=== PATIENT | female | born 1955 | race American Indian/Alaskan Native ===

== ENCOUNTER 2019-08-09 01:43 | Observation (INO) | payer OTHER ==
[2019-08-09] MEDS ORDERED: NA CHLORIDE 0.9% 1,000 ML ONE (02:04)
[2019-08-09] MEDS ORDERED: PANTOPRAZOLE 40 MG INJ ONE (02:04)
[2019-08-09] MEDS ORDERED: HYDROMORPHONE HCL 1 MG/ML INJ ONE ×2 (02:22→02:58)
[2019-08-09] MEDS ORDERED: ONDANSETRON 4 MG/2 ML VIAL ONE ×3 (02:22→08:38)
[2019-08-09 02:31] LABS: Absolute Lymphocytes (CBC) 1.3 K/uL (0.7-4.9); Basophils % 0.4 % (0-1.3); Hematocrit 37.8 % (36.0-45.0); Lymphocytes % 7.8 % (15.3-44.8); MPV 8.6 fL (7.6-11.3); RBC Red Blood Cell Count 4.19 M/uL (3.86-4.86)
[2019-08-09 02:33] LABS: Protime INR 0.95
[2019-08-09 02:49] LABS: ALT/SGPT 20 U/L (12-78); AST/SGOT 17 U/L (15-37); Albumin 3.7 g/dL (3.4-5.0); Alkaline Phosphatase 86 U/L (45-117); BUN Blood Urea Nitrogen 24 mg/dL (7-18); Bicarbonate 22 mmol/L (21-32); Bilirubin Direct < 0.1 mg/dL (0-0.2); Bilirubin Total 0.3 mg/dL (0.2-1.0); Glucose Level 144 mg/dL (74-106); Lipase 80 U/L (73-393); Magnesium 1.8 mg/dL (1.8-2.4); NT PRO-BNP 325 pg/mL (<125); Potassium 3.3 mmol/L (3.5-5.1); Sodium Level 138 mmol/L (136-145); Troponin (Emerg Dept Use Only) < 0.02 ng/mL (0.0-0.045)
[2019-08-09 03:24] LABS: Blood Morphology Comment NOT SEEN (NOT SEEN); Platelet Estimate ADEQ; Urine White Blood Cell Casts OK
[2019-08-09] MEDS ORDERED: NS KCL 20MEQ 1,000 ML IV ONE (03:45)
--- NOTE | 2019-08-09 04:57 | EDPHYS ---
Physician Documentation [facility] Name: Neelima Roth Age: 64 yrs Sex: Female : 1955 Arrival Date: 08/09/2019 Time: 01:45 Bed 6 Private MD: ANA MARIA Physician Severo Pepper HPI: 08/09 01:59 This 64 yrs old Female presents to ER via EMS with complaints of abdominal pain, frederick nausea a. 01:59 This 64 yrs old Female presents to ER via EMS with complaints of abdominal pain. frederick 01:59 The patient presents with abdominal pain in the upper abdomen, in the lower abdomen, frederick abdominal distention in the upper abdomen, in the lower abdomen. Onset: The symptoms/episode began/occurred 2 day(s) ago. The patient presents to the emergency department with nausea, diarrhea, abdominal pain, of the right upper quadrant, left upper quadrant, right lower quadrant and left lower quadrant, described as burning, constant. Onset: The symptoms/episode began/occurred just prior to arrival. Possible causes: unknown. The symptoms are aggravated by nothing. The symptoms are alleviated by nothing. Associated signs and symptoms: The patient has no apparent associated signs or symptoms. Associated signs and symptoms: none. Historical: - Allergies: 02:04 Codeine; fc - Home Meds: 02:04 hydrochlorothiazide 12.5 mg Oral cap 1 cap once daily [Active]; losartan 100 mg oral fc tab 1 tab once daily [Active]; levothyroxine 25 mcg tab 1 tab once daily [Active]; bupropion HCl 300 mg Oral Tb24 1 tab once daily [Active]; quetiapine 25 mg oral tab 1 tab 2 times per day [Active]; metoprolol tartrate 50 mg Oral tab 1 tab once daily [Active]; duloxetine 60 mg oral cpDR 1 cap once daily [Active]; - PMHx: 02:04 PTSD; Depression; Anxiety; Hypertension; Hypothyroidism; Chronic pain; Pneumothorax; fc Leg surg; - PSHx: 02:04 Rods in back; ; pneumothorax; fc - Immunization history:: Last tetanus immunization: up to date Pneumococcal vaccine is up to date, Flu vaccine is up to date. - Social history:: Smoking status: Patient/guardian denies using tobacco, Patient/guardian denies using alcohol, street drugs. - Ebola Screening: : Patient negative for fever greater than or equal to 101.5 degrees Fahrenheit, and additional compatible Ebola Virus Disease symptoms Patient denies exposure to infectious person Patient denies travel to an Ebola-affected area in the 21 days before illness onset. - Family history:: not pertinent. ROS: 01:59 Constitutional: Negative for fever, chills, and weight loss, Eyes: Negative for injury, frederick pain, redness, and discharge, ENT: Negative for injury, pain, and discharge, Neck: Negative for injury, pain, and swelling, Cardiovascular: Negative for chest pain, palpitations, and edema, Respiratory: Negative for shortness of breath, cough, wheezing, and pleuritic chest pain, Back: Negative for injury and pain, : Negative for injury, bleeding, discharge, and swelling, MS/Extremity: Negative for injury and deformity, Skin: Negative for injury, rash, and discoloration, Neuro: Negative for headache, weakness, numbness, tingling, and seizure, Psych: Negative for depression, anxiety, suicide ideation, homicidal ideation, and hallucinations, Allergy/Immunology: Negative for hives, rash, and allergies, Endocrine: Negative for neck swelling, polydipsia, polyuria, polyphagia, and marked weight changes, Hematologic/Lymphatic: Negative for swollen nodes, abnormal bleeding, and unusual bruising. 01:59 Abdomen/GI: Positive for abdominal pain, of the right upper quadrant, left upper quadrant, right lower quadrant and left lower quadrant. Exam: 01:59 Constitutional: This is a well developed, well nourished patient who is awake, alert, frederick and in no acute distress. Head/Face: Normocephalic, atraumatic. Eyes: Pupils equal round and reactive to light, extra-ocular motions intact. Lids and lashes normal. Conjunctiva and sclera are non-icteric and not injected. Cornea within normal limits. Periorbital areas with no swelling, redness, or edema. ENT: Nares patent. No nasal discharge, no septal abnormalities noted. Tympanic membranes are normal and external auditory canals are clear. Oropharynx with no redness, swelling, or masses, exudates, or evidence of obstruction, uvula midline. Mucous membranes moist. Neck: Trachea midline, no thyromegaly or masses palpated, and no cervical lymphadenopathy. Supple, full range of motion without nuchal rigidity, or vertebral point tenderness. No Meningismus. Chest/axilla: Normal chest wall appearance and motion. Nontender with no deformity. No lesions are appreciated. Cardiovascular: Regular rate and rhythm with a normal S1 and S2. No gallops, murmurs, or rubs. Normal PMI, no JVD. No pulse deficits. Respiratory: Lungs have equal breath sounds bilaterally, clear to auscultation and percussion. No rales, rhonchi or wheezes noted. No increased work of breathing, no retractions or nasal flaring. Back: No spinal tenderness. No costovertebral tenderness. Full range of motion. Female : Normal external genitalia. Skin: Warm, dry with normal turgor. Normal color with no rashes, no lesions, and no evidence of cellulitis. MS/ Extremity: Pulses equal, no cyanosis. Neurovascular intact. Full, normal range of motion. Neuro: Awake and alert, GCS 15, oriented to person, place, time, and situation. Cranial nerves II-XII grossly intact. Motor strength 5/5 in all extremities. Sensory grossly intact. Cerebellar exam normal. Normal gait. Psych: Awake, alert, with orientation to person, place and time. Behavior, mood, and affect are within normal limits. 01:59 Abdomen/GI: Inspection: abdomen appears normal, Bowel sounds: normal, Palpation: mild abdominal tenderness, in all quadrants, in the right upper quadrant, left upper quadrant, right lower quadrant and left lower quadrant, Liver: no appreciated palpable abnormalities, Hernia: not appreciated. Vital Signs: 01:35 Pulse 72; Resp 20; Pulse Ox 100% on R/A; Weight 99.79 kg (R); Height 5 ft. 2 in. fc (157.48 cm) (R); Pain 10/10; 02:30 BP 168 / 141; Pulse 79; Resp 18; Pulse Ox 97% on R/A; lp1 02:46 BP 133 / 95; Pulse 68; Resp 18; Pulse Ox 100% on R/A; lp1 03:53 BP 125 / 79; Pulse 79; Resp 14; Temp 99.1(O); Pulse Ox 99% on R/A; lp1 05:00 BP 119 / 76; Pulse 72; Resp 16; Pulse Ox 99% on R/A; lp1 01:35 Body Mass Index 40.24 (99.79 kg, 157.48 cm) fc 02:30 Unable to obtain accurate blood pressure, patient restless, agitated lp1 MDM: 01:49 Patient medically screened. [facility] 02:03 Data reviewed: vital signs, nurses notes, lab test result(s), EKG, radiologic studies, [facility] CT scan, plain films. 08/09 01:59 Order name: Basic Metabolic Panel; Complete Time: 02:56 [facility] 08/09 01:59 Order name: CBC with Diff; Complete Time: 04:54 [facility] 08/09 01:59 Order name: LFT's; Complete Time: 02:56 [facility] 08/09 01:59 Order name: Magnesium; Complete Time: 02:56 [facility] 08/09 01:59 Order name: NT PRO-BNP; Complete Time: 02:56 [facility] 08/09 01:59 Order name: PT-INR; Complete Time: 02:56 [facility] 08/09 01:59 Order name: Troponin (emerg Dept Use Only); Complete Time: 02:56 [facility] 08/09 01:59 Order name: XRAY Chest (1 view) [facility] 08/09 01:59 Order name: Lipase; Complete Time: 02:56 [facility] 08/09 01:59 Order name: Urine Culture [facility] 08/09 01:59 Order name: CT Abd/Pelvis - PO and IV Contrast [facility] 08/09 03:25 Order name: CBC Smear Scan; Complete Time: 04:54 [facility] 08/09 05:23 Order name: Urine Dipstick--Ancillary (enter results) cm6 08/09 05:29 Order name: Urine Dipstick-Ancillary [facility] 08/09 01:59 Order name: EKG; Complete Time: 02:00 [facility] 08/09 01:59 Order name: Cardiac monitoring; Complete Time: 03:02 [facility] 08/09 01:59 Order name: EKG - Nurse/Tech; Complete Time: 03:02 [facility] 08/09 01:59 Order name: IV Saline Lock; Complete Time: 02:41 [facility] 08/09 01:59 Order name: Labs collected and sent; Complete Time: 02:41 [facility] 08/09 01:59 Order name: O2 Per Protocol; Complete Time: 02:41 [facility] 08/09 01:59 Order name: O2 Sat Monitoring; Complete Time: 02:41 [facility] 08/09 01:59 Order name: Urine Dipstick-Ancillary (obtain specimen); Complete Time: 05:40 frederick Administered Medications: 02:22 Drug: Dilaudid 0.5 mg {Note: RASS 0.} Route: IVP; Site: left antecubital; lp1 05:40 Follow up: Response: No adverse reaction lp1 02:22 Drug: Zofran 4 mg Route: IVP; Site: left antecubital; lp1 05:40 Follow up: Response: Nausea is decreased lp1 02:30 Drug: NS 0.9% 500 ml Route: IV; Rate: bolus; Site: left antecubital; lp1 05:15 Follow up: IV Status: Completed infusion; IV Intake: 1000ml ; Patient given 1000ml per lp1 Provider 02:30 Drug: ProTONIX 40 mg Route: IVP; Site: left antecubital; lp1 03:05 Follow up: Response: No adverse reaction lp1 02:30 Drug: Dilaudid 1 mg {Note: RASS 3.} Route: IVP; Site: left antecubital; lp1 03:04 Follow up: Response: No change in condition; Pain is unchanged, physician notified lp1 02:30 Drug: Zofran 4 mg Route: IVP; Site: left antecubital; lp1 03:05 Follow up: Response: No adverse reaction lp1 02:57 Not Given (Duplicate Order): NS 0.9% 1000 ml IV at 125 ml/hr continuous frederick 03:04 Drug: Dilaudid 1 mg {Note: RASS 2.} Route: IVP; Site: left antecubital; lp1 03:30 Follow up: Response: Pain is decreased; RASS: Alert and Calm (0) lp1 03:05 Not Given (No nausea at this time ): Zofran 4 mg IVP once; over 2 minutes lp1 03:52 Drug: NS 0.9% with KCl 20 mEq/L 1000 ml Route: IV; Rate: 125 ml/hr; Site: left lp1 antecubital; 05:15 Follow up: IV Status: Infusion continued upon admission lp1 05:14 Drug: Zosyn 3.375 grams Route: IVPB; Infused Over: 60 mins; Site: left antecubital; lp1 05:40 Follow up: IV Status: Infusion continued upon admission lp1 Disposition: 08/09/19 04:56 Hospitalization ordered by Mikel Maier for Inpatient Admission. Preliminary diagnosis are Abdominal tenderness, Elevated white blood cell count, Acute appendicitis, Other ovarian cysts - 4.6 cm dermoid cyst, Hypokalemia. - Bed requested for Telemetry/MedSurg (observation). - Status is Inpatient Admission. lp1 - Condition is Stable. - Problem is new. - Symptoms have improved. UTI on Admission? No Signatures: Dispatcher [employer] EDMS Melyssa Robert RN RN mw Anderson, Corey, MD MD [facility] Rita Polanco RN RN Myah Alexander RN RN [facility] Corrections: (The following items were deleted from the chart) 05:05 04:56 Hospitalization Ordered by Mikel Maier MD for Inpatient Admission. Preliminary diagnosis is Abdominal tenderness; Elevated white blood cell count; Acute appendicitis; Other ovarian cysts - 4.6 cm dermoid cyst. Bed requested for Telemetry/MedSurg (observation). Status is Inpatient Admission. Condition is Stable. Problem is new. Symptoms have improved. UTI on Admission? No. frederick 05:14 05:05 08/09/2019 04:56 Hospitalization Ordered by Mikel Maier MD for Inpatient [facility] Admission. Preliminary diagnosis is Abdominal tenderness; Elevated white blood cell count; Acute appendicitis; Other ovarian cysts - 4.6 cm dermoid cyst. Bed requested for Telemetry/MedSurg (observation). Status is Inpatient Admission. Condition is Stable. Problem is new. Symptoms have improved. UTI on Admission? No. 06:06 05:14 08/09/2019 04:56 Hospitalization Ordered by Mikel Maier MD for Inpatient [facility] Admission. Preliminary diagnosis is Abdominal tenderness; Elevated white blood cell count; Acute appendicitis; Other ovarian cysts - 4.6 cm dermoid cyst; Hypokalemia. Bed requested for Telemetry/MedSurg (observation). Status is Inpatient Admission. Condition is Stable. Problem is new. Symptoms have improved. UTI on Admission? No. frederick
--- NOTE | 2019-08-09 04:57 | ER ---
Nurse's Notes [facility] Name: Neelima Roth Age: 64 yrs Sex: Female : 1955 Arrival Date: 08/09/2019 Time: 01:45 Bed 6 Private MD: Diagnosis: Abdominal tenderness;Elevated white blood cell count;Acute appendicitis;Other ovarian cysts-4.6 cm dermoid cyst;Hypokalemia Presentation: 08/09 01:35 Presenting complaint: Patient states: that she is having lower back pain that started 2 fc hrs ago with nausea and chills. Denies any vomiting or diarrhea. Also having lower back spasms. Transition of care: patient was not received from another setting of care. Onset of symptoms was August 09, 2019 at 00:00. Risk Assessment: Do you want to hurt yourself or someone else? Patient reports no desire to harm self or others. Initial Sepsis Screen: Does the patient meet any 2 criteria? No. Patient's initial sepsis screen is negative. Does the patient have a suspected source of infection? No. Patient's initial sepsis screen is negative. Care prior to arrival: None. 01:35 Method Of Arrival: EMS: [facility] 01:35 Acuity: MARLENE 3 fc Historical: - Allergies: 02:04 Codeine; fc - Home Meds: 02:04 hydrochlorothiazide 12.5 mg Oral cap 1 cap once daily [Active]; losartan 100 mg oral fc tab 1 tab once daily [Active]; levothyroxine 25 mcg tab 1 tab once daily [Active]; bupropion HCl 300 mg Oral Tb24 1 tab once daily [Active]; quetiapine 25 mg oral tab 1 tab 2 times per day [Active]; metoprolol tartrate 50 mg Oral tab 1 tab once daily [Active]; duloxetine 60 mg oral cpDR 1 cap once daily [Active]; - PMHx: 02:04 PTSD; Depression; Anxiety; Hypertension; Hypothyroidism; Chronic pain; Pneumothorax; fc Leg surg; - PSHx: 02:04 Rods in back; ; pneumothorax; fc - Immunization history:: Last tetanus immunization: up to date Pneumococcal vaccine is up to date, Flu vaccine is up to date. - Social history:: Smoking status: Patient/guardian denies using tobacco, Patient/guardian denies using alcohol, street drugs. - Ebola Screening: : Patient negative for fever greater than or equal to 101.5 degrees Fahrenheit, and additional compatible Ebola Virus Disease symptoms Patient denies exposure to infectious person Patient denies travel to an Ebola-affected area in the 21 days before illness onset. - Family history:: not pertinent. Screenin:52 Abuse screen: Denies threats or abuse. Nutritional screening: No deficits noted. bb Tuberculosis screening: No symptoms or risk factors identified. Fall Risk None identified. Assessment: 01:49 General: Appears uncomfortable, Behavior is uncooperative, pt states "This isn't going bb to do any good" pt refuses to answer questions requesting family at bedside. Family brought from lobby to pt's room. Dr Pepper at bedside for pt evaluation. 02:20 Reassessment: Patient completed oral contrast, quality technician fiberglass at bedside. lp1 02:30 Reassessment: patient rocking self in bed, agitated, states "The pain is making me want lp1 to punch you"; Lights turned out for patient comfort. General: Behavior is agitated, anxious, restless. Pain: Complains of pain in abdomen Pain currently is 10 out of 10 on a pain scale. Neuro: Level of Consciousness is awake, alert, obeys commands. Cardiovascular: Patient's skin is warm and dry. Respiratory: Respiratory effort is even, Respiratory pattern is hyperventilation. GI: Abdomen is round Reports lower abdominal pain, upper abdominal pain, nausea. : No signs and/or symptoms were reported regarding the genitourinary system. EENT: No signs and/or symptoms were reported regarding the EENT system. Derm: Skin is pink, warm \\T\\ dry. Musculoskeletal: No deficits noted. 02:50 Reassessment: Patient states no pain relief; Provider notified. lp1 03:20 Reassessment: Patient is alert, oriented x 3, equal unlabored respirations, skin lp1 warm/dry/pink. Patient states feeling better. Patient states symptoms have improved. Reassessment: Patient laughing with friend at bedside, pleasant. General: Behavior is calm. 05:00 Reassessment: Patient and/or family updated on plan of care and expected duration. Pain lp1 level reassessed. Patient states pain returning to abdomen at this time; Provider notified. Vital Signs: 01:35 Pulse 72; Resp 20; Pulse Ox 100% on R/A; Weight 99.79 kg (R); Height 5 ft. 2 in. fc (157.48 cm) (R); Pain 10/10; 02:30 BP 168 / 141; Pulse 79; Resp 18; Pulse Ox 97% on R/A; lp1 02:46 BP 133 / 95; Pulse 68; Resp 18; Pulse Ox 100% on R/A; lp1 03:53 BP 125 / 79; Pulse 79; Resp 14; Temp 99.1(O); Pulse Ox 99% on R/A; lp1 05:00 BP 119 / 76; Pulse 72; Resp 16; Pulse Ox 99% on R/A; lp1 01:35 Body Mass Index 40.24 (99.79 kg, 157.48 cm) fc 02:30 Unable to obtain accurate blood pressure, patient restless, agitated lp1 ED Course: 01:35 Arm band placed on Patient placed in an exam room, on a stretcher. fc 01:45 Patient arrived in ED. ds1 01:49 Severo Pepper MD is Attending Physician. frederick 01:52 Patient has correct armband on for positive identification. Placed in gown. Bed in low bb position. Call light in reach. Side rails up X2. Pulse ox on. NIBP on. 01:59 Triage completed. fc 02:21 Inserted saline lock: 20 gauge in left antecubital area, using aseptic technique. lp1 02:30 Radiology exam delayed due to lab results not completed at this time. (BUN/Creatinine). kw1 02:39 Myah Alexander, RN is Primary Nurse. lp1 02:58 XRAY Chest (1 view) In Process Unspecified. EDMS 03:58 CT Abd/Pelvis - PO and IV Contrast In Process Unspecified. EDMS 04:54 Mikel Maier MD is Hospitalizing Provider. frederick 05:10 No provider procedures requiring assistance completed. Patient admitted, IV remains in lp1 place. Administered Medications: 02:22 Drug: Dilaudid 0.5 mg {Note: RASS 0.} Route: IVP; Site: left antecubital; lp1 05:40 Follow up: Response: No adverse reaction lp1 02:22 Drug: Zofran 4 mg Route: IVP; Site: left antecubital; lp1 05:40 Follow up: Response: Nausea is decreased lp1 02:30 Drug: NS 0.9% 500 ml Route: IV; Rate: bolus; Site: left antecubital; lp1 05:15 Follow up: IV Status: Completed infusion; IV Intake: 1000ml ; Patient given 1000ml per lp1 Provider 02:30 Drug: ProTONIX 40 mg Route: IVP; Site: left antecubital; lp1 03:05 Follow up: Response: No adverse reaction lp1 02:30 Drug: Dilaudid 1 mg {Note: RASS 3.} Route: IVP; Site: left antecubital; lp1 03:04 Follow up: Response: No change in condition; Pain is unchanged, physician notified lp1 02:30 Drug: Zofran 4 mg Route: IVP; Site: left antecubital; lp1 03:05 Follow up: Response: No adverse reaction lp1 02:57 Not Given (Duplicate Order): NS 0.9% 1000 ml IV at 125 ml/hr continuous frederick 03:04 Drug: Dilaudid 1 mg {Note: RASS 2.} Route: IVP; Site: left antecubital; lp1 03:30 Follow up: Response: Pain is decreased; RASS: Alert and Calm (0) lp1 03:05 Not Given (No nausea at this time ): Zofran 4 mg IVP once; over 2 minutes lp1 03:52 Drug: NS 0.9% with KCl 20 mEq/L 1000 ml Route: IV; Rate: 125 ml/hr; Site: left lp1 antecubital; 05:15 Follow up: IV Status: Infusion continued upon admission lp1 05:14 Drug: Zosyn 3.375 grams Route: IVPB; Infused Over: 60 mins; Site: left antecubital; lp1 05:40 Follow up: IV Status: Infusion continued upon admission lp1 Intake: 05:15 IV: 1000ml; Total: 1000ml. lp1 Outcome: 04:56 Decision to Hospitalize by Provider. frederick 05:12 Condition: stable lp1 05:12 Instructed on the need for admit. 05:13 Admitted to Med/surg via wheelchair, room 205, with chart, Report called to Opal Dumont RN 06:06 Patient left the ED. lp1 Signatures: Dispatcher [employer] Severo Reid MD MD cha Chretien Rita, RN RN fc Keith, Shayna ds1 Jessica Olsen RN RN bb Myah Alexander RN RN lp1 Ivanna Kyle [facility]
[2019-08-09] MEDS ORDERED: PIPER/TAZO/NS 3.375gm 3.375 GM/100 ML BAG ONE (04:58)
[2019-08-09] MEDS ORDERED: HYDROMORPHONE HCL 0.5 MG/0.5 ML INJ ONE (05:20)
[2019-08-09 05:29] LABS: Urine Blood NEGATIVE (NEG); Urine Glucose NEGATIVE (NEG); Urine Protein NEGATIVE (NEG); Urine pH 6.5 (5.0-7.0)
[2019-08-09] MEDS ORDERED: MORPHINE 4 MG/ML SYR IV PRN (06:37)
[2019-08-09 06:42] VITALS: BMI 35.7
[2019-08-09] MEDS ORDERED: ACETAMINOPHEN 325 MG TABLET PO PRN (06:46)
--- NOTE | 2019-08-09 07:42 | EKG ---
Test Date: 2019-08-09 Test Time: 03:07:10 Photogravure Press Operator: SALOMÓN MEASUREMENT RESULTS: Intervals: Rate: 64 VT: 170 QRSD: 82 QT: 454 QTc: 468 [place]: P: 15 VT: 170 QRS: 53 T: 41 INTERPRETIVE STATEMENTS: Normal sinus rhythm Normal ECG No previous ECG available for comparison Electronically Signed On 08-09-19 07:41:53 TRANSACTIONAL ATTORNEY by Kunal Powell
--- NOTE | 2019-08-09 08:24 | RAD REPORT ---
EXAM DESCRIPTION: RAD - Chest Single View - 08/09/2019 2:57 am CLINICAL HISTORY: Cough, abdominal distention COMPARISON: None. TECHNIQUE: AP portable chest image was obtained 0239 hours . FINDINGS: Lung volumes are low. No peripheral mass or consolidation. Heart size and vasculature with in normal limits for body habitus and portable imaging. Trachea is midline. Heart and vasculature are normal. No measurable pleural effusion and no pneumothorax. No acute bony abnormality seen. No acute aortic findings suspected. IMPRESSION: No acute cardiopulmonary process.
[2019-08-09] MEDS ORDERED: Ringers Lactate 1,000 ML IV ONE (08:26)
[2019-08-09] MEDS ORDERED: FENTANYL CITR 100 MCG/2 ML ONE (08:36)
[2019-08-09] MEDS ORDERED: ROCURONIUM 50 MG/5 ML VIAL IV ONE (08:36)
[2019-08-09] MEDS ORDERED: PROPOFOL 200 MG/20 ML VIAL IV ONE ×2 (08:36→09:29)
[2019-08-09] MEDS ORDERED: LIDOCAINE 2% MPF 5 ML VIAL ONE (08:37)
[2019-08-09] MEDS ORDERED: MIDAZOLAM HCL 2 MG/2 ML INJ ONE (08:37)
[2019-08-09] MEDS ORDERED: SCOPOLAMINE HYDROBROMIDE PATCH TD ONE (08:40)
--- NOTE | 2019-08-09 08:47 | P.HP ---
Date of Service: 08/09/19 PC: This 64-year-old female presents emergency room with severe abdominal pain for diagnosis and treatment. HPC: Patient noticed that she was having abdominal discomfort about 48 hr ago. Pain has intensified. Now located in the right lower quadrant. PMH: PTSD, hypertension, hypothyroidism PSHx: Previous back surgery, knee surgery, SOC: Says codeine makes her itchy SYS REVIEW: No cough, wheeze, shortness of breath. No chest pain or palpitations no urinary complaints O/E awake alert vital signs are stable HEENT: Within normal limits Chest: Clear ABD: Tender with guarding in the right lower quadrant LOCO: Intact DATA: CT scan supports clinical diagnosis of acute appendicitis IMPRESSION: Acute abdomen with appendicitis PLAN: I will take her to the operating room for laparoscopic possible open appendectomy. The risks of this procedure have been discussed. The possibility of bleeding, infection, injury to bowel and surrounding structures was explained. The possible need for an open and/or further surgeries and procedures was described. Bleeding and abscess formation were outlined. She understands and wants us proceed.
[2019-08-09] MEDS ORDERED: NS 0.9% VIAL 20 ML ONE (09:08)
[2019-08-09] MEDS ORDERED: GLYCOPYRROLATE 0.2 MG/ML SYR ONE ×2 (09:27→09:39)
[2019-08-09] MEDS ORDERED: NEOSTIGMINE 1 MG/ML -5 ML ONE (09:39)
--- NOTE | 2019-08-09 09:43 | P.OP ---
Preoperative diagnosis: Acute abdomen Postoperative diagnosis: Acute appendicitis Primary procedure: Laparoscopic appendectomy Anesthesia: General Estimated blood loss: Less than 10 cc Specimen: 1 appendix Operative Technique: The patient brought the operating room and placed supine on the table. After the induction of adequate general endotracheal anesthesia, the area of the abdomen was prepped with a DuraPrep solution, and she was draped in usual aseptic manner. A subumbilical incision was made. This brought down through the skin and subcutaneous tissue. The Visiport was now used to enter the peritoneal cavity and created pneumoperitoneum to approximately 12 mm of mercury. The patient was then placed in Trendelenburg. A lower midline 5 mm trocar was placed The table was now rolled to the left. And a right upper quadrant trocar was carefully placed. We could now visualize right lower quadrant. The right colon was noted mildly inflamed. Around the cecum there was more inflammation. The appendix was identified was found to be acutely inflamed with suppurative exudate on its surface. The appendix was adherent to the distal ileum as well as the omentum in that area. These adhesions were gently taken down. The base of his the appendix was identified at its junction with the cecum. A window was made into the mesentery of the appendix. A linear Stapler was now placed across the base of the appendix and fired. A vascular reload was used to take down the mesentery. We also fired another blue cartridge to completely peritoneum. At this point the specimens placed into an Endo-Catch and brought out through the umbilical trocar site. The right lower quadrant was inspected to ensure adequate hemostasis. The area was gently irrigated and the effluent was aspirated from the peritoneal cavity. The anterior abdominal wall was CALVIN blocked with 0.25% Marcaine. The Endo Close was used to approximate the facile defect at the emboli kiss. The pneumoperitoneum was now collapsed, the trocars removed, and the sutures tied. At the end of procedure she was stable when sent to the recovery room. Needle sponge instrument count were correct. No drains were placed. Kaylen were applied to the skin. Complications: None Transferred to: Recovery Room Condition: Good
[2019-08-09] MEDS: HYDROMORPHONE HCL 2 MG/ML inj ONE ×2 (10:03→10:17)
--- NOTE | 2019-08-09 11:13 | RAD REPORT ---
EXAM DESCRIPTION: CT - Abdomen Pelvis W Contrast - 08/09/2019 5:08 am CLINICAL HISTORY: ABD PAIN COMPARISON: None. TECHNIQUE: CT ABDOMEN PELVIS WITH IV CONTRAST on 08/09/2019 1:59 AM MARKETING ADMINISTRATOR This exam was performed according to our departmental dose-optimization program, which includes autom ated exposure control, adjustment of the mA and/or kV according to patient size and/or use of iterati ve reconstruction technique. FINDINGS: Lower lungs are clear. Abdomen: The liver is normal in appearance. There is no biliary dilatation. Gallbladder is normal in appearance. The pancreas and spleen are normal in appearance. The adrenal glands and kidneys are unre markable. Abdominal aorta is normal in course and caliber without aneurysm. There is no free air. There is no r etroperitoneal adenopathy. Pelvis: There is no bowel obstruction. Urinary bladder is unremarkable. There is no free fluid. Uteru s is normal in size. There is mostly fat-containing left adnexal mass measuring 4.6 x 4.6 cm. Appendi x is equivocally thickened measuring up to 9 mm. There is no significant inflammation surrounding it. There is a lipoma in the anterior upper left thigh musculature measuring at least 6.5 cm. Skeleton: There are no acute osseous findings. No suspicious bony lesions. Thoracolumbar fusion was p erformed with evidence of an old compression fracture of L1. IMPRESSION: Equivocal findings of acute appendicitis. 4.6 cm dermoid ovarian cyst. Recommend pelvic MRI w/IV contrast. If not surgically resected, pelvic U S follow-up annually. Reference: J Am Vincent Radiol 2013;[id number] Electronically signed by: Hari Zimmerman MD 08/09/2019 4:06 AM MARKETING ADMINISTRATOR Due to temporary technical issues with the PACS/Fluency reporting system, reports are being signed by the in house radiologist as a courtesy to ensure prompt reporting. The interpreting radiologist is f ully responsible for the content of the report.
[2019-08-09] MEDS: MORPHINE 4 MG/ML SYR IV PRN ×4 (11:16→21:27)
[2019-08-09] MEDS ORDERED: PIPER/TAZO/NS 3.375gm 3.375 GM/100 ML BAG IVPB SCH (12:00)
[2019-08-09] MEDS: NS KCL 20MEQ 20 MEQ/1,000 ML BAG IV SCH ×4 (12:15→22:37)
[2019-08-09] MEDS: PIPER/TAZO/NS 3.375gm 3.375 GM/100 ML BAG IVPB SCH (13:12)
[2019-08-09] MEDS: ONDANSETRON 4 MG/2 ML VIAL IV PRN ×2 (15:08→21:20)
[2019-08-09] MEDS ORDERED: NA CHLORIDE 0.9% 500 ML IV ONE (16:17)
[2019-08-09] MEDS: HYDROCODONE/APAP 7.5/325 MG TAB PO PRN (21:19)
[2019-08-09 22:13] VITALS: O2SAT 97
[2019-08-10] MEDS: PIPER/TAZO/NS 3.375gm 3.375 GM/100 ML BAG IVPB SCH ×2 (00:26→08:23)
[2019-08-10] MEDS: MORPHINE 4 MG/ML SYR IV PRN ×2 (00:27→06:34)
[2019-08-10 06:29] LABS: Potassium 4.5 mmol/L (3.5-5.1)
[2019-08-10] MEDS: NS KCL 20MEQ 20 MEQ/1,000 ML BAG IV SCH ×2 (06:33→10:35)
[2019-08-10] MEDS: HYDROCODONE/APAP 7.5/325 MG TAB PO PRN ×2 (10:34→14:13)
[2019-08-10] MEDS ORDERED: NA CHLORIDE 0.9% 500 ML IV ONE (11:37)
--- NOTE | 2019-08-10 12:56 | RAD REPORT ---
EXAM DESCRIPTION: Dorcas Joe And Ashu (2 Views)08/10/2019 12:44 pm CLINICAL HISTORY: Shortness of breath COMPARISON: August 09, 2019 FINDINGS: A few areas of subsegmental axis are present within the lungs. The heart is borderline enlarged. Pneumoperitoneum is present status post recent abdominal surgery
[2019-08-10 13:17] VITALS: BP 95/62; TEMP 98
--- NOTE | 2019-08-10 14:28 | P.CNS ---
Date of Consult: 08/10/19 Reason for Consult: Chest tightness Requesting Physician: Mikel Maier Chief Complaint: Chest Tightness History of Present Illness: A 64-year-old female with significant past medical history of hypothyroidism, hypertension, depression who presented to the ED complaining of having abdominal pain. Workup in the ED reveals the patient had acute appendicitis. Patient was taken to the OR by general surgery. Was doing well overall post procedures well. General surgeon was following up with patient patient complained of having chest tightness which is why medicine was consulted for further management. Patient stated that she is having chest tightness which is more similar to her anxiety attack that she has had in the past. Patient is currently very anxious regarding discharging home right after the procedure. States that she is anxious as to what needs to be done at home. Patient denies having any chest pain shortness of breath nausea vomiting or any other associated symptoms at this time. Allergies codeine Allergy (Verified 08/09/19 06:36) Itching Home Medications: Bupropion *Xl* [Wellbutrin XL] 300 mg PO DAILY 08/09/19 Duloxetine HCl [Cymbalta] 2 tab PO DAILY 08/09/19 Levothyroxine Sodium 1 tab PO DAILY 08/09/19 Losartan Potassium 1 tab PO DAILY 08/09/19 Metoprolol Succinate [Toprol Xl*] 1 tab PO DAILY 08/09/19 Quetiapine [Seroquel*] 1 tab PO BEDTIME 08/09/19 hydroCHLOROthiazide [Hydrochlorothiazide] 1 tab PO DAILY 08/09/19 Hydrocodone 7.5/APAP 325 [Hayes 7.5/325 mg] 1 tab PO Q6H PRN #20 tab 08/10/19 - Past Medical/Surgical History Diabetic: No Past Medical History: Reviewed- Non-Contributory Past Surgical History: Reviewed- Non-Contributory - Social History Smoking Status: Unknown if ever smoked Counseled patient to stop smoking for: more than 10 minutes Smoking therapy provided: Yes Patient receptive to therapy: Yes Alcohol use: No CD- Drugs: No Caffeine use: No Place of Residence: Home Review of Systems 10-point ROS is otherwise unremarkable Physical Examination Temp Pulse Resp BP Pulse Ox 98 F 89 18 95/62 98 08/10/19 12:00 08/10/19 12:00 08/10/19 14:13 08/10/19 12:00 08/10/19 14:13 General: Alert, In no apparent distress HEENT: Atraumatic, PERRLA, Mucous membr. moist/pink, EOMI, Sclerae nonicteric Neck: Supple, 2+ carotid pulse no bruit, No LAD, Without JVD or thyroid abnormality Respiratory: Clear to auscultation bilaterally, Normal air movement Cardiovascular: Regular rate/rhythm, Normal S1 S2 Gastrointestinal: Normal bowel sounds, No tenderness Musculoskeletal: No tenderness Integumentary: No rashes Neurological: Normal gait, Normal speech, Normal tone, Normal affect Lymphatics: No axilla or inguinal lymphadenopathy - Problems (1) Chest tightness Current Visit: Yes Status: Acute Plan: Chest Tightness most likely related anxiety related to surgery and DC home -Troponin x 2 negative -EKG with Sinus Rhythm -Chest tightness now resolved post pain medication -Will keep on Tele and monitor closely -Okay to DC from Medical standpoint when surgery ready for DC (2) Appendicitis Current Visit: Yes Status: Acute Plan: Appendicitis -S.P Lap appy with gen surgery today -Doing well -Pain mgmt and Ambulate -Encourage PO Qualifiers: Appendicitis type: acute appendicitis Appendicitis gangrene presence: unspecified whether gangrene present Appendicitis perforation presence: unspecified whether perforation present Appendicitis abscess presence: unspecified whether abscess present
--- NOTE | 2019-08-10 14:30 | EKG ---
Test Date: 2019-08-10 Test Time: 12:49:15 Manager Distribution: BENY MEASUREMENT RESULTS: Intervals: Rate: 88 TX: 168 QRSD: 88 QT: 370 QTc: 447 [place]: P: 43 TX: 168 QRS: 56 T: 34 INTERPRETIVE STATEMENTS: Normal sinus rhythm Normal ECG Compared to ECG 08/09/2019 03:07:10 No significant changes Electronically Signed On 08-10-19 14:29:51 DIRECT ENTRY MIDWIFE by Edson Flannery
[2019-08-10] MEDS ORDERED: QUETIAPINE 25 MG TAB PO SCH (21:00)
[2019-08-11] MEDS ORDERED: LEVOTHYROXINE SOD 0.025 MG TAB PO SCH (06:30)
[2019-08-11] MEDS ORDERED: hydroCHLOROthiazide 12.5 MG CAP PO SCH (09:00)
[2019-08-11] MEDS ORDERED: DULOXETINE 30 MG CAP PO SCH (09:00)
[2019-08-11] MEDS ORDERED: LOSARTAN POTASSIUM 50 MG TABLET PO SCH (09:00)
[2019-08-11] MEDS ORDERED: HOME MED 1 EA UNK (Losartan Potassium [Losartan Potassium] 1 TAB) PO SCH (09:00)
[2019-08-11] MEDS ORDERED: HOME MED 1 EA UNK (Hydrochlorothiazide [Hydrochlorothiazide] 1 TAB) PO SCH (09:00)
[2019-08-11] MEDS ORDERED: BUPROPION HCL XL 150 MG TAB PO SCH (09:00)
[2019-08-11] MEDS ORDERED: METOPROLOL XL 50 MG TAB PO SCH (09:00)
== END 2019-08-10 15:22 | disposition home or self-care (01) ==
LOC: ER 01:43 → ERHOLD 05:12 → 2ND 05:14
PROVIDERS: ADMIT Surgery; ATTEND Surgery
PROC: 0DTJ4ZZ Resection of Appendix, Percutaneous Endoscopic Approach (ICD-10-PCS; principal; 2019-08-09 08:00)
DX: K35.80 Unspecified acute appendicitis (principal); I10 Essential (primary) hypertension; E03.9 Hypothyroidism, unspecified; F43.10 Post-traumatic stress disorder, unspecified
CPT/HCPCS: 96365; 96361; 93005 ×2; 87088; 85025; 87086; 80048 ×2; 36415 ×2; 83735; 85610; 80076; 88304; 81003; 84484 ×2; 83690; 83880; 74177; 71045; 71046; 96375; 99285; 44970; Q9967; J2704 ×2; C9113; J2250; J1170 ×4; J3010; J2543 ×2; J2710; G0378 ×4; J7120; J7040; J7030 ×2; J2405 ×5

== ENCOUNTER 2019-08-13 10:50 | Inpatient (IN) | payer OTHER ==
[2019-08-13] MEDS ORDERED: HYDROMORPHONE HCL 1 MG/ML INJ ONE (12:12)
[2019-08-13] MEDS ORDERED: NA CHLORIDE 0.9% 1,000 ML ONE (12:12)
[2019-08-13] MEDS ORDERED: ONDANSETRON 4 MG/2 ML VIAL ONE (12:12)
[2019-08-13 12:27] LABS: Absolute Lymphocytes (CBC) 0.8 K/uL (0.7-4.9); Basophils % 0.3 % (0-1.3); Hematocrit 24.1 % (36.0-45.0); Lymphocytes % 9.7 % (15.3-44.8); MPV 7.8 fL (7.6-11.3); RBC Red Blood Cell Count 2.61 M/uL (3.86-4.86)
[2019-08-13 12:41] LABS: Albumin 3.1 g/dL (3.4-5.0); Bilirubin Direct 0.2 mg/dL (0-0.2); Bilirubin Total 0.7 mg/dL (0.2-1.0); Potassium 3.3 mmol/L (3.5-5.1); Protein, Total 6.4 g/dL (6.4-8.2)
--- NOTE | 2019-08-13 12:55 | RAD REPORT ---
EXAM DESCRIPTION: CT - Abdomen Pelvis W Contrast - 08/13/2019 12:36 pm CLINICAL HISTORY: ABD PAIN, appendectomy several days earlier, back pain, black tarry stools COMPARISON: Pre-surgical CT study August 09 TECHNIQUE: Biphasic, helical CT imaging of the abdomen and pelvis was performed following 100 ml non -ionic IV contrast. No oral contrast given. All CT scans are performed using dose optimization technique as appropriate and may include automated exposure control or mA/KV adjustment according to patient size. FINDINGS: No suspicious findings in the lung bases. The liver, spleen, and pancreas show no suspicious findings. Small enhancing focus in the liver adjac ent the gallbladder fossa is most likely a small hemangioma. This is not regarded as significant. Mil d stranding is seen adjacent to the gallbladder. Gallstones can be occult on CT imaging. No biliary t ree dilatation. Symmetric renal function is seen with no hydronephrosis or suspicious renal mass. No pyelonephritis o r acute parenchymal process. No bladder abnormalities. No adrenal abnormalities. No gastric dilatation or gastric wall thickening. No dilated small bowel loops. No acute colon findin g identifiable. Punctate air densities in the subcutaneous fatty tissues are related to recent laparo scopic surgery. Small amounts of free air and free intraperitoneal fluid in the upper abdomen also wi thin normal limits for the recent surgery. Appendectomy clips are present at the tip of the cecum. Fluid in the pelvis is present relatively hig h in attenuation at 40-45 Hounsfield units. This is likely a mixture of blood and fluid. There is no active extravasation of contrast material. No abscess or drainable fluid collection at this time. The patient's known 4.5 centimeter left adnexal dermoid/ teratoma shows no change in characteristics. No new uterine finding. Right ovary is obscured by the intraperitoneal fluid. No new bone finding. Patient has extensive postsurgical change in the lumbar spine. Large fatty mass is seen in the anterior by a not fully imaged on this study. The imaged portion does not show aggressive characteristics. IMPRESSION: High density fluid in the lower pelvis and cul de sac likely a mixture of blood and post surgical fluid. No abscess or drainable fluid collection at this time. No active extravasation of contrast material identifiable. The suspected blood within the peritoneal fluid may all have occurred at the time of surgery. This could be a source of pain wall but will prob ably resolve with time. Correlation can be made with hematocrit/hemoglobin levels. Stranding along the margin of the gallbladder is probably reactive from the surgical change. Gallblad devi is not dilated. Gallstones can be occult on CT imaging. No biliary tree dilatation. Fatty mass in the upper thigh is not fully imaged. The visualized portion does not show aggressive ch aracteristics.
--- NOTE | 2019-08-13 13:37 | EDPHYS ---
Physician Documentation [facility] Name: Neelima Roth Age: 64 yrs Sex: Female : 1955 Arrival Date: 08/13/2019 Time: 10:51 Bed 16 Private MD: ANA MARIA Physician Severo Pepper HPI: 08/13 11:54 This 64 yrs old Other Female presents to ER via Wheelchair with complaints of Abdominal pm1 pain. 11:54 The patient presents with abdominal pain that is diffuse. Onset: The symptoms/episode pm1 began/occurred after surgery patient reports expect mild pain but the pain became worse today. The symptoms do not radiate. Associated signs and symptoms: Pertinent positives: nausea, Pertinent negatives: chest pain, diarrhea, dysuria, fever, shortness of breath, vomiting, Cough. The symptoms are described as achy, constant. Modifying factors: The symptoms are alleviated by nothing, the symptoms are aggravated by nothing. Severity of pain: in the emergency department the pain has resolved. The patient has been recently been admitted at [facility], was discharged last week, for appendicitis. Patient reports loose stool and diarrhea since surgery. Reports dark diarrhea. Historical: - Allergies: 10:56 Codeine; la1 - Home Meds: 11:15 bupropion HCl 300 mg Oral Tb24 1 tab once daily [Active]; duloxetine 60 mg Oral cpDR 1 rb1 cap once daily [Active]; hydrochlorothiazide 12.5 mg Oral cap 1 cap once daily [Active]; levothyroxine 25 mcg tab 1 tab once daily [Active]; losartan 100 mg Oral tab 1 tab once daily [Active]; metoprolol tartrate 50 mg Oral tab 1 tab once daily [Active]; quetiapine 25 mg Oral tab 1 tab 2 times per day [Active]; - PMHx: 10:56 Anxiety; Chronic pain; Depression; Hypertension; Hypothyroidism; Leg surg; la1 Pneumothorax; PTSD; - PSHx: 11:15 Rods in back; ; pneumothorax; Appendectomy; rb1 - Immunization history:: Adult Immunizations up to date. - Social history:: Smoking status: Patient/guardian denies using tobacco. - Ebola Screening: : No symptoms or risks identified at this time. ROS: 11:54 Constitutional: Negative for fever, chills, and weight loss, Eyes: Negative for injury, pm1 pain, redness, and discharge, ENT: Negative for injury, pain, and discharge, Neck: Negative for injury, pain, and swelling, Cardiovascular: Negative for chest pain, palpitations, and edema, Respiratory: Negative for shortness of breath, cough, wheezing, and pleuritic chest pain. 11:54 Back: Negative for injury and pain, : Negative for injury, bleeding, discharge, and swelling, MS/Extremity: Negative for injury and deformity, Skin: Negative for injury, rash, and discoloration, Neuro: Negative for headache, weakness, numbness, tingling, and seizure. 11:54 Abdomen/GI: Positive for abdominal pain, nausea, Negative for vomiting, diarrhea, constipation. Exam: 11:54 Abdomen/GI: Stool guaiac negative. Collected by RN from bedside commode, stool pm1 brownish-greenish, loose/diarrhea. 11:54 Constitutional: This is a well developed, well nourished patient who is awake, alert, pm1 and in no acute distress. Head/Face: Normocephalic, atraumatic. Eyes: Pupils equal round and reactive to light, extra-ocular motions intact. Lids and lashes normal. Conjunctiva and sclera are non-icteric and not injected. Cornea within normal limits. Periorbital areas with no swelling, redness, or edema. ENT: Nares patent. No nasal discharge, no septal abnormalities noted. Tympanic membranes are normal and external auditory canals are clear. Oropharynx with no redness, swelling, or masses, exudates, or evidence of obstruction, uvula midline. Mucous membranes moist. Neck: Trachea midline, no thyromegaly or masses palpated, and no cervical lymphadenopathy. Supple, full range of motion without nuchal rigidity, or vertebral point tenderness. No Meningismus. Chest/axilla: Normal chest wall appearance and motion. Nontender with no deformity. No lesions are appreciated. Cardiovascular: Regular rate and rhythm with a normal S1 and S2. No gallops, murmurs, or rubs. Normal PMI, no JVD. No pulse deficits. Respiratory: Lungs have equal breath sounds bilaterally, clear to auscultation and percussion. No rales, rhonchi or wheezes noted. No increased work of breathing, no retractions or nasal flaring. Back: No spinal tenderness. No costovertebral tenderness. Full range of motion. Skin: Warm, dry with normal turgor. Normal color with no rashes, no lesions, and no evidence of cellulitis. MS/ Extremity: Pulses equal, no cyanosis. Neurovascular intact. Full, normal range of motion. 11:54 Abdomen/GI: Inspection: obese Bowel sounds: normal, Palpation: soft, mild abdominal tenderness, in the right lower quadrant and left lower quadrant, mass, is not appreciated, rebound tenderness, is not appreciated. 11:54 Neuro: Orientation: is normal, Mentation: is normal, Memory: is normal, Motor: is normal, Sensation: is normal, no obvious gross deficits. Vital Signs: 11:10 BP 157 / 60; Pulse 100; Resp 16; Temp 98.6; Pulse Ox 100% on R/A; Weight 88.45 kg; la1 12:10 BP 152 / 63; Pulse 98; Resp 17; Pulse Ox 100% on R/A; rb1 13:10 BP 150 / 63; Pulse 89; Resp 17; Pulse Ox 100% on R/A; Pain 6/10; rb1 14:10 BP 136 / 69; Pulse 93; Resp 17; Pulse Ox 100% on R/A; Pain 3/10; rb1 15:10 BP 135 / 71; Pulse 91; Resp 18; Pulse Ox 99% on R/A; Pain 3/10; rb1 MDM: 11:17 Patient medically screened. pm1 11:43 Data reviewed: vital signs. Data interpreted: Pulse oximetry: on room air is 100 %. pm1 Interpretation: normal. 13:30 Physician consultation: Mikel Maier MD was called at 13:25, was contacted at 13:25, pm1 regarding patient's condition, and will see patient tomorrow morning. give patient IV fluids, pain medications, repeat labs in the AM. 08/13 11:44 Order name: [place]; Complete Time: 13:47 em1 08/13 11:46 Order name: Basic Metabolic Panel; Complete Time: 13:03 pm1 08/13 11:46 Order name: CBC with Diff; Complete Time: 13:03 pm1 08/13 11:46 Order name: Creatinine for Radiology; Complete Time: 13:03 pm1 08/13 11:46 Order name: Hepatic Function; Complete Time: 13:03 pm1 08/13 11:46 Order name: Lipase; Complete Time: 13:03 pm1 08/13 11:46 Order name: CT Abd/Pelvis - IV Contrast Only; Complete Time: 13:03 pm1 08/13 11:46 Order name: IV Saline Lock; Complete Time: 12:22 pm1 08/13 13:58 Order name: Type And Screen pm1 08/13 15:08 Order name: ABO/RH no charge; Complete Time: 15:32 EDDE 08/13 15:09 Order name: Type and Screen EDDE 08/13 11:46 Order name: Labs collected and sent; Complete Time: 12:22 pm1 Administered Medications: 12:21 Drug: Dilaudid 1 mg Route: IVP; Site: left antecubital; rb1 12:51 Follow up: Response: No adverse reaction; Pain is decreased rb1 12:21 Drug: Zofran 4 mg Route: IVP; Site: left antecubital; rb1 12:52 Follow up: Response: No adverse reaction; Pain is decreased rb1 12:22 Drug: NS 0.9% 1000 ml Route: IV; Rate: 1000 ml; Site: left antecubital; rb1 Disposition: 08/13/19 13:36 Hospitalization ordered by Mikel Maier for Observation. Preliminary diagnosis are Anemia, unspecified, Unspecified abdominal pain. - Bed requested for Telemetry/MedSurg (observation). - Status is Observation. rb1 - Condition is Stable. - Problem is new. - Symptoms have improved. UTI on Admission? No Addendum: 08/15/2019 07:00 Co-signature as Attending Physician, Severo Pepper MD I agree with the assessment and c moser plan of care. Signatures: Dispatcher [employer] [facility] Severo Pepper MD MD cha Martinez, Eric em1 Johnnie Leos, RN RN la1 Chloe Ramos, RN RN rb1 Bal Mayen, COUNTER STACKER COUNTER STACKER pm1 Corrections: (The following items were deleted from the chart) 08/13 14:15 11:54 Abdomen/GI: Stool guaiac negative. Collected by RN from bedside commode, pm1 pm1 14:15 13:36 Hospitalization Ordered by Mikel Maier MD for Observation. Preliminary em1 diagnosis is Anemia, unspecifiedUnspecified abdominal pain. Bed requested for Telemetry/MedSurg (observation). Status is Observation. Condition is Stable. Problem is new. Symptoms have improved. UTI on Admission? No. pm1 14:16 11:54 Abdomen/GI: Stool guaiac negative. Collected by RN from bedside commode, pm1 pm1 14:17 11:54 Abdomen/GI: Stool guaiac negative. Collected by RN from bedside commode, stool pm1 brownish-greenish, loose. Not diarrhea, pm1 15:18 14:15 08/13/2019 13:36 Hospitalization Ordered by Mikel Maier MD for Observation. rb1 Preliminary diagnosis is Anemia, unspecifiedUnspecified abdominal pain. Bed requested for Telemetry/MedSurg (observation). Status is Observation. Condition is Stable. Problem is new. Symptoms have improved. UTI on Admission? No. em1
--- NOTE | 2019-08-13 13:37 | ER ---
Nurse's Notes [facility] Name: Neelima Roth Age: 64 yrs Sex: Female : 1955 Arrival Date: 08/13/2019 Time: 10:51 Bed 16 Private MD: Diagnosis: Unspecified abdominal pain;Anemia, unspecified Presentation: 08/13 10:56 Presenting complaint: Patient states: I had have black diarrhea since and I la1 had an appendectomy on Wednesday with Dr. Maier here. I also have really bad back pain and it has been hurting for the last 5 days. The pain medicine they sent me home with isnt helping and they told me it was they only thing they would send me home with even though I told them the only thing that works and doesn't upset my stomach is 10mg oxycodone. Transition of care: patient was not received from another setting of care. Onset of symptoms was August 13, 2019. Risk Assessment: Do you want to hurt yourself or someone else? Patient reports no desire to harm self or others. Initial Sepsis Screen: Does the patient meet any 2 criteria? No. Patient's initial sepsis screen is negative. Does the patient have a suspected source of infection? No. Patient's initial sepsis screen is negative. Care prior to arrival: None. 10:56 Method Of Arrival: Wheelchair la1 10:56 Acuity: MARLENE 2 la1 Historical: - Allergies: 10:56 Codeine; la1 - Home Meds: 11:15 bupropion HCl 300 mg Oral Tb24 1 tab once daily [Active]; duloxetine 60 mg Oral cpDR 1 rb1 cap once daily [Active]; hydrochlorothiazide 12.5 mg Oral cap 1 cap once daily [Active]; levothyroxine 25 mcg tab 1 tab once daily [Active]; losartan 100 mg Oral tab 1 tab once daily [Active]; metoprolol tartrate 50 mg Oral tab 1 tab once daily [Active]; quetiapine 25 mg Oral tab 1 tab 2 times per day [Active]; - PMHx: 10:56 Anxiety; Chronic pain; Depression; Hypertension; Hypothyroidism; Leg surg; la1 Pneumothorax; PTSD; - PSHx: 11:15 Rods in back; ; pneumothorax; Appendectomy; rb1 - Immunization history:: Adult Immunizations up to date. - Social history:: Smoking status: Patient/guardian denies using tobacco. - Ebola Screening: : No symptoms or risks identified at this time. Screenin:15 Abuse screen: Denies threats or abuse. Nutritional screening: No deficits noted. rb1 Tuberculosis screening: No symptoms or risk factors identified. Fall Risk None identified. Assessment: 11:15 General: Appears uncomfortable, Behavior is agitated, anxious, Denies fever, Reports rb1 having a appendectomy on Wednesday by Dr. Maier and having black diarrhea on .. Pain: Complains of pain in back Pain currently is 10 out of 10 on a pain scale. Neuro: Level of Consciousness is awake, alert, obeys commands, Oriented to person, place, time, situation. Cardiovascular: Capillary refill < 3 seconds is brisk in bilateral fingers. Respiratory: Airway is patent Respiratory effort is even, unlabored, Respiratory pattern is regular, symmetrical. GI: Reports diarrhea, black stool. : No signs and/or symptoms were reported regarding the genitourinary system. Derm: Skin is pink, warm \T\ dry. 12:15 Reassessment: Patient appears in no apparent distress at this time. No changes from rb1 previously documented assessment. 12:51 Reassessment: Patient appears in no apparent distress at this time. Patient and/or rb1 family updated on plan of care and expected duration. Pain level reassessed. Patient is alert, oriented x 3, equal unlabored respirations, skin warm/dry/pink. 13:50 Reassessment: Patient appears in no apparent distress at this time. Patient and/or rb1 family updated on plan of care and expected duration. Pain level reassessed. Patient is alert, oriented x 3, equal unlabored respirations, skin warm/dry/pink. 14:32 Reassessment: Patient appears in no apparent distress at this time. No changes from rb1 previously documented assessment. 14:46 Reassessment: Called report to JOSIAH Mccann. Information from the [facility] was given. All rb1 questions asked and answered. 15:15 Reassessment: Patient appears in no apparent distress at this time. Patient and/or rb1 family updated on plan of care and expected duration. Pain level reassessed. Patient is alert, oriented x 3, equal unlabored respirations, skin warm/dry/pink. Vital Signs: 11:10 BP 157 / 60; Pulse 100; Resp 16; Temp 98.6; Pulse Ox 100% on R/A; Weight 88.45 kg; la1 12:10 BP 152 / 63; Pulse 98; Resp 17; Pulse Ox 100% on R/A; rb1 13:10 BP 150 / 63; Pulse 89; Resp 17; Pulse Ox 100% on R/A; Pain 6/10; rb1 14:10 BP 136 / 69; Pulse 93; Resp 17; Pulse Ox 100% on R/A; Pain 3/10; rb1 15:10 BP 135 / 71; Pulse 91; Resp 18; Pulse Ox 99% on R/A; Pain 3/10; rb1 ED Course: 10:51 Patient arrived in ED. as 10:55 Arm band placed on left wrist. la1 10:58 Triage completed. la1 11:11 Bal Mayen NP is PHCP. pm1 11:12 Chloe Ramos, RN is Primary Nurse. rb1 11:12 Severo Pepper MD is Attending Physician. pm1 11:15 Patient has correct armband on for positive identification. Bed in low position. Call rb1 light in reach. Side rails up X 1. Pulse ox on. NIBP on. Warm blanket given. 11:49 Radiology exam delayed due to lab results not completed at this time. (BUN/Creatinine). kw1 12:32 CT completed. Patient tolerated procedure well. Patient moved back from CT. bq 12:36 CT Abd/Pelvis - IV Contrast Only In Process Unspecified. EDMS 13:35 Mikel Maier MD is Hospitalizing Provider. pm1 15:18 No provider procedures requiring assistance completed. Patient admitted, IV remains in rb1 place. Administered Medications: 12:21 Drug: Dilaudid 1 mg Route: IVP; Site: left antecubital; rb1 12:51 Follow up: Response: No adverse reaction; Pain is decreased rb1 12:21 Drug: Zofran 4 mg Route: IVP; Site: left antecubital; rb1 12:52 Follow up: Response: No adverse reaction; Pain is decreased rb1 12:22 Drug: NS 0.9% 1000 ml Route: IV; Rate: 1000 ml; Site: left antecubital; rb1 Output: 11:44 Stool: 1 (Loose Stool) ; Total: 0ml. rb1 Outcome: 13:36 Decision to Hospitalize by Provider. pm1 15:18 Patient left the ED. rb1 15:18 Admitted to Tele accompanied by tech, via wheelchair, room 405, with chart, Report rb1 called to JOSIAH Mccann 15:18 Condition: stable 15:18 Instructed on the need for admit. Signatures: Dispatcher [employer] EDMS Fanta Garner Amelia as Attema, Lee, RN RN la1 Chloe Ramos RN RN rb1 Bal Mayen NP DIRECTOR OF MOBILE MARKETING pm1 Ivanna Kyle kw1 Corrections: (The following items were deleted from the chart) 11:00 10:56 Presenting complaint: Patient states: I had have black diarrhea since la1 and I had an appendectomy, I also have really bad back pain and it has been hurting for the last 5 days la1
[2019-08-13 16:11] VITALS: BMI 35.6
[2019-08-13] MEDS ORDERED: HOME MED 1 EA UNK PO PRN ×2 (16:20→16:21)
[2019-08-13] MEDS: NA CHLORIDE 0.9% 1,000 ML IV SCH (16:38)
[2019-08-13] MEDS: ONDANSETRON 4 MG/2 ML VIAL IV PRN ×2 (16:38→21:42)
[2019-08-13] MEDS: MORPHINE 4 MG/ML SYR IV PRN ×2 (17:56→21:43)
[2019-08-14] MEDS: NA CHLORIDE 0.9% 1,000 ML IV SCH ×3 (00:50→20:29)
[2019-08-14] MEDS: MORPHINE 4 MG/ML SYR IV PRN ×7 (01:57→22:26)
[2019-08-14] MEDS: ONDANSETRON 4 MG/2 ML VIAL IV PRN ×2 (01:58→06:07)
[2019-08-14] MEDS: HOME MED 1 EA UNK PO SCH ×6 (06:00→09:00)
[2019-08-14 06:15] LABS: Absolute Lymphocytes (CBC) 0.6 K/uL (0.7-4.9); Basophils % 0.1 % (0-1.3); Hematocrit 22.1 % (36.0-45.0); Lymphocytes % 5.5 % (15.3-44.8); MPV 7.8 fL (7.6-11.3); RBC Red Blood Cell Count 2.41 M/uL (3.86-4.86)
[2019-08-14 06:40] LABS: Albumin 2.6 g/dL (3.4-5.0); Bilirubin Direct 0.2 mg/dL (0-0.2); Bilirubin Total 0.8 mg/dL (0.2-1.0); Protein, Total 5.9 g/dL (6.4-8.2)
[2019-08-14 08:07] LABS: Blood Morphology Comment NOT SEEN (NOT SEEN); Platelet Estimate ADEQ
[2019-08-14] MEDS: PROMETHAZINE 25 MG/ML VIAL IV PRN ×2 (08:23→20:19)
[2019-08-14] MEDS ORDERED: NA CHLORIDE 0.9% 250 ML ONE ×2 (09:46→15:57)
[2019-08-14 22:17] LABS: Hematocrit 28.2 % (36.0-45.0)
[2019-08-15] MEDS: PROMETHAZINE 25 MG/ML VIAL IV PRN ×4 (02:51→21:56)
[2019-08-15] MEDS: MORPHINE 4 MG/ML SYR IV PRN ×7 (02:51→21:55)
[2019-08-15] MEDS: HOME MED 1 EA UNK PO SCH ×6 (05:38→09:00)
[2019-08-15] MEDS: NA CHLORIDE 0.9% 1,000 ML IV SCH ×3 (05:38→17:57)
[2019-08-15 05:54] LABS: Urine Appearance CLEAR; Urine Blood 2+ (NEG); Urine Color AMBER; Urine Glucose NEGATIVE (NEG); Urine Microscopic Reflex ORDER UMIC; Urine Protein 2+ (NEG); Urine Specific Gravity >=1.030 (1.005-1.030); Urine Urobilinogen 0.2 mg/dL (0.2-1.0)
[2019-08-15 06:05] LABS: Urine Bilirubin 1+ (NEG)
[2019-08-15 06:11] LABS: Urine Bacteria <20 /HPF (<20); Urine RBC <5 /HPF (NONE SEEN)
[2019-08-15 06:12] LABS: Urine Culture Reflex Order REFLEXED
--- NOTE | 2019-08-15 09:33 | P.HP ---
Date of Service: 08/14/19 This is a post dated note. PC: This patient presented to the emergency room with abdominal pain and complaint of black tarry stools. HPC: Patient recently undergone appendectomy. She did well postoperatively. She was discharged home. Now 5 days later she comes back with complaints of not feeling well and pain in her back. PMH: PTSD PSHx: Previous back surgeries SOC: Allergic to codeine and acetaminophen SYS REVIEW: No cough, wheeze, shortness of breath. No chest pain or palpitations. Denies any urinary complaints at this time. No respiratory distress. O/E awake alert stable HEENT: Not jaundiced Chest: Chest movement equal bilaterally ABD: Soft minimal tenderness LOCO: Intact DATA: Patient's hemoglobin is 7.9, CT scan demonstrates some fluid in the pelvis IMPRESSION: Possible postoperative bleeding and this surgical site PLAN: Patient has been admitted at this time, we will transfuse her 2 units of blood, administer pain medicine, antibiotics, and observe her closely.
--- NOTE | 2019-08-15 10:03 | P.PN ---
Date of Service: 08/15/19 S: Patient feels much better today, bright and interactive. Has mild abdominal pain but much improved. Does not have much of an appetite is still complains of some nausea. O: Abdomen is soft, minimal lower abdominal tenderness. Hemoglobin responded appropriately with the increase to 9.8 A: Patient is surgically stable, no clinical signs of any active bleeding. P: Continue to advance diet, pain medicine as needed, anticipate discharge in a.m..
[2019-08-16] MEDS: MORPHINE 4 MG/ML SYR IV PRN ×6 (00:45→20:47)
[2019-08-16] MEDS: PROMETHAZINE 25 MG/ML VIAL IV PRN ×3 (04:20→20:47)
[2019-08-16] MEDS: NA CHLORIDE 0.9% 1,000 ML IV SCH ×4 (04:49→23:51)
[2019-08-16] MEDS: HOME MED 1 EA UNK PO SCH ×6 (06:00→09:00)
--- NOTE | 2019-08-16 13:55 | P.PN ---
Date of Service: 08/16/19 S: Patient is very upset today. States that she has not think she is being treated adequately. Says she is having pain and it is not being treated appropriately. She cannot be discharged as I will not write a prescription for oxycodone for her. O: Vital signs are stable, clinically looks well. Has been up out of bed according to the nurses. She has been afebrile since admission. She will not allow me to examine her, or does not want to talk to me anymore today as I am aggravating her PTSD. A: Clinically the patient looks well. Obviously is distressed. P: The patient, on inspection, appears to be stable. There is no way that I am able to converse with her at the moment or examine her. Open questions are quickly shut down, and she states that she cannot leave here until the plan for her pain control has been outlined to her. I do not or ever have prescribed oxycodone for any patient in any outpatient setting. She was discharged on hydrocodone as she stated that she has taken it many times in the past, and it has worked for her but she has found other drugs to be more effective so she stated that she was allergic to codeine and Tylenol. I have offered to try and arrange a outpatient visit way with pain management physician. She stated that that was unsatisfactory. She dismissed me and and says that she will take up this conversation perhaps tomorrow. I have ordered some lab work for her in the morning. I have also explained to her that her morphine (4 mg) is available for her every 2 hr. The nurses state that she appears to be quite comfortable. She was dose at 7:00 a.m., and has slept most of the morning until around 12 when she received another dose. I will repeat some labs in the morning.
[2019-08-17] MEDS: MORPHINE 4 MG/ML SYR IV PRN ×8 (00:04→20:20)
[2019-08-17 05:15] LABS: Absolute Lymphocytes (CBC) 0.6 K/uL (0.7-4.9); Basophils % 0.2 % (0-1.3); Hematocrit 27.4 % (36.0-45.0); Lymphocytes % 4.9 % (15.3-44.8); MPV 7.6 fL (7.6-11.3); RBC Red Blood Cell Count 3.02 M/uL (3.86-4.86)
[2019-08-17 05:35] LABS: Potassium 2.8 mmol/L (3.5-5.1)
[2019-08-17] MEDS: HOME MED 1 EA UNK PO SCH ×6 (06:00→08:46)
[2019-08-17] MEDS: KCL 20 MEQ/100 mL IVPB 20 MEQ/100 ML BAG IV SCH ×3 (06:08→10:00)
[2019-08-17] MEDS: NA CHLORIDE 0.9% 1,000 ML IV SCH ×2 (08:44→16:34)
[2019-08-17] MEDS: PROMETHAZINE 25 MG/ML VIAL IV PRN (10:16)
--- NOTE | 2019-08-17 10:57 | P.CNS ---
Date of Consult: 08/17/19 64 yo female with a past medical history of Anxiety, Chronic pain; Depression; Hypertension; Hypothyroidism; PTSD for underwent a laparoscopic appendectomy admitted with Abdominal pain and anemia. Patient was found to have ESBL in urine culture and hospitalist was consulted by Surgery. I went into her room and introduced myself, told her that I have been consulted for the UTI with ESBL. She refused to be seen. She refused to provide any history. She refused being examined. Recommended meropenem IV for the ESBLwith UTI Discussed with the charge nurse as well. Please let us know if the patient is willing to be seen
--- NOTE | 2019-08-17 14:18 | P.PN ---
Date of Service: 08/17/19 S: Patient appears to be somewhat more receptive today. No specific complaints. O: Dean in the abdomen. Wound Healing. Uli hematoma over the lower abdomen. Has ESBL on culture. Console was sought with the hospitalist. A: Surgically, abdomen is soft, dean removed for her incisions. Hospital says discussed antibiotics and PICC line with the patient. I was able to review with a painting trades worker a post hospital pain regime. It does include OxyContin for a limited time. This was explained to the patient. P: Patient had PICC line placed. Continue current therapy..
[2019-08-17] MEDS ORDERED: POTASSIUM CL SA 10 MEQ TAB PO ONE ×2 (17:00→23:31)
[2019-08-17] MEDS ORDERED: Meropenem 500 MG VIAL IV SCH (17:00)
[2019-08-17] MEDS: Meropenem 500 MG in NA CHLORIDE 0.9% 100 ML IV SCH (17:02)
[2019-08-18] MEDS: MORPHINE 4 MG/ML SYR IV PRN ×10 (01:04→22:16)
[2019-08-18] MEDS: PROMETHAZINE 25 MG/ML VIAL IV PRN ×2 (01:05→18:09)
[2019-08-18] MEDS: Meropenem 500 MG in NA CHLORIDE 0.9% 100 ML IV SCH ×3 (02:20→16:00)
[2019-08-18] MEDS: HOME MED 1 EA UNK PO SCH ×6 (06:00→09:00)
[2019-08-18 06:48] LABS: BUN Blood Urea Nitrogen 6 mg/dL (7-18); Bicarbonate 26 mmol/L (21-32); Glucose Level 115 mg/dL (74-106); Potassium 3.6 mmol/L (3.5-5.1); Sodium Level 133 mmol/L (136-145)
[2019-08-18] MEDS ORDERED: POTASSIUM CL SA 10 MEQ TAB PO ONE (06:50)
[2019-08-18] MEDS: NA CHLORIDE 0.9% 1,000 ML IV SCH ×2 (09:24→14:50)
[2019-08-18] MEDS ORDERED: MAGNESIUM HYDROXIDE 8% 30 ML PO ONE (09:42)
[2019-08-18] MEDS ORDERED: DOCUSATE NA 100 MG CAP PO PRN (09:42)
--- NOTE | 2019-08-18 11:49 | RAD REPORT ---
EXAM DESCRIPTION: RAD - Chest Single View - 08/18/2019 4:39 am CLINICAL HISTORY: PICC Placement TECHNIQUE: Single frontal view of the chest is submitted. COMPARISON: None available for comparison FINDINGS: Heart: The cardiothoracic silhouette is within normal limits. Lungs: No focal consolidation. Mediastinum: Thoracic aortic atherosclerosis. Pleura: No appreciable effusion. No pneumothorax. Bones: Intact Upper abdomen: Unremarkable Other: Right upper extremity PICC tip projects over the proximal superior vena cava. IMPRESSION: Right upper extremity PICC tip projects over the proximal superior vena cava. Electronically signed by: Livier Naik MD 08/18/2019 3:33 AM BEACH EXPERT Due to temporary technical issues with the PACS/Fluency reporting system, reports are being signed by the in house radiologist as a courtesy to ensure prompt reporting. The interpreting radiologist is f ully responsible for the content of the report.
[2019-08-18] MEDS ORDERED: QUETIAPINE 25 MG TAB PO PRN ×2 (14:39)
--- NOTE | 2019-08-18 16:46 | P.PN ---
Subjective Date of Service: 08/18/19 Primary Care Provider: Dr. Maier Chief Complaint: ESBL E. Coli urinary tract infection Subjective: No new changes, Tolerating diet On behalf of Dr. Gonsalves hospitalist team is consulting on this patient's case. Patient was readmitted for pain management after having an appendectomy. Was found to have E. S. B. L. urinary tract infection in which patient was started on meropenem. Patient has been very agitated over the past couple of days for various reasons. At this time patient is willing to accept treatment for urinary tract infection. Review of Systems General: Unremarkable Eyes: Unremarkable ENT: Unremarkable Respiratory: Unremarkable Cardiovascular: Unremarkable Gastrointestinal: Abdominal Pain Musculoskeletal: Unremarkable Integumentary: Unremarkable Neurological: Unremarkable Lymphatics: Unremarkable Physical Examination - Vital Signs Temperature: 97.4 F Blood Pressure: 138/76 Pulse: 96 Respirations: 17 Pulse Ox (%): 98 - Physical Exam General: Alert, Oriented x3, Cooperative HEENT: Normocephalic, PERRLA, Mucous membr. moist/pink, EOMI Neck: Supple, 2+ carotid pulse no bruit, JVD not distended Respiratory: Clear to auscultation bilaterally, Normal air movement Cardiovascular: No edema, Normal pulses, Regular rate/rhythm, Normal S1 S2, No gallops, No rubs, No murmurs Capillary refill: <2 Seconds Gastrointestinal: Normal bowel sounds, Non-distended, No ascites, No rebound, No guarding, Tenderness (lower right abdomen) Musculoskeletal: No clubbing, No swelling, No contractures, No erythema, No tenderness, No warmth Integumentary: No rashes, No breakdown, No significant lesion, No tenderness/ swelling, No erythema, No warmth, No cyanosis Neurological: Normal speech, Normal strength at 5/5 x4 extr, Normal tone, Sensation intact, Cranial nerves 3-12 intact, Normal reflexes 2+ Other Physical/Emotional Findings: Patient upset - Studies Medications List Reviewed: Yes Assessment And Plan - Current Problems (Diagnosis) (1) ESBL (extended spectrum beta-lactamase) producing bacteria infection Current Visit: Yes Status: Acute (2) UTI (urinary tract infection) Current Visit: Yes Status: Acute Qualifiers: Urinary tract infection type: site unspecified (3) Hypokalemia Current Visit: Yes Status: Acute (4) Appendicitis Current Visit: No Status: Acute - Plan After having extended detailed discussion with the patient. Patient agreed to be treated for her urinary tract infection. Patient at this time agreed to continue to see Dr. Maier but on a limited basis. Patient will remain in the hospital because she refuses to follow up with Dr. Gonsalves at this time outpatient benitez. Patient is from out of town so has no other followup care. Will continue to treat her urinary tract infection with meropenem. Patient tolerating p.o. fluids and food so hydrate that way for now. Discontinued IV hydration at this time. Will monitor potassium and replace as necessary. Vitals and respiratory status will also be monitored. From surgical standpoint and Dr. Maier stated that there is nothing else that needs to be done at this time. Will do serial abdominal exams to make sure patient remains stable on hospital. Will reassess patient tomorrow and continue to figure out the discharge plan. Discharge Plan: Home Plan to discharge in: 48 Hours - Code Status/Comfort Care Code Status Assessed: Yes Code Status: Full Code Critical Care: No Time Spent Managing PTS Care (In Minutes): 60
--- NOTE | 2019-08-18 17:11 | P.PN ---
Date of Service: 08/18/19 S: Came to talk to patient. Vital signs are stable, no specific complaints initially. O: After getting patient's permission was able to examine her abdomen. Her abdomen is soft, no guarding or rebound. Her incisions remain intact. A: Surgically the patient appears to be stable. P: Once again patient refuses to discuss any further treatment or her condition. She is decision she is having a episode of her PTSD as a ostomy left alone. She says she may be a lift-off tomorrow. I have tried to explain to her that I have attempted over the last course of 3-4 days to discuss with her her ongoing care. She refuses every time. I have conulted with the hospitalist team so that may be some other physicians would be able to ensure this patient is getting him the ongoing care that she will require.
[2019-08-19] MEDS: Meropenem 500 MG in NA CHLORIDE 0.9% 100 ML IV SCH ×3 (01:15→16:09)
[2019-08-19] MEDS: MORPHINE 4 MG/ML SYR IV PRN ×4 (01:22→19:59)
[2019-08-19 04:37] LABS: Absolute Lymphocytes (CBC) 0.7 K/uL (0.7-4.9); Basophils % 0.3 % (0-1.3); Hematocrit 28.6 % (36.0-45.0); Lymphocytes % 5.6 % (15.3-44.8); MPV 7.5 fL (7.6-11.3); RBC Red Blood Cell Count 3.09 M/uL (3.86-4.86)
[2019-08-19 04:42] LABS: ALT/SGPT 12 U/L (12-78); AST/SGOT 14 U/L (15-37); Albumin 2.1 g/dL (3.4-5.0); Alkaline Phosphatase 179 U/L (45-117); BUN Blood Urea Nitrogen 8 mg/dL (7-18); Bicarbonate 27 mmol/L (21-32); Bilirubin Total 1.2 mg/dL (0.2-1.0); Glucose Level 87 mg/dL (74-106); Protein, Total 5.7 g/dL (6.4-8.2); Sodium Level 133 mmol/L (136-145)
[2019-08-19 05:02] LABS: Blood Morphology Comment NOT SEEN (NOT SEEN); Platelet Estimate ADEQ
[2019-08-19] MEDS: HOME MED 1 EA UNK PO SCH ×7 (06:00→08:40)
[2019-08-19] MEDS: LEVOTHYROXINE SOD 0.025 MG TAB PO SCH (06:00)
[2019-08-19] MEDS: BUPROPION HCL XL 150 MG TAB PO SCH ×2 (08:25→08:40)
[2019-08-19] MEDS: DULOXETINE 30 MG CAP PO SCH ×2 (08:26→08:39)
[2019-08-19] MEDS: LOSARTAN POTASSIUM 50 MG TABLET PO SCH ×2 (08:26→08:39)
[2019-08-19] MEDS: METOPROLOL XL 50 MG TAB PO SCH ×2 (08:28→08:40)
[2019-08-19] MEDS: hydroCHLOROthiazide 12.5 MG CAP PO SCH ×2 (08:28→08:40)
[2019-08-20] MEDS: MORPHINE 4 MG/ML SYR IV PRN ×2 (00:16→06:33)
[2019-08-20] MEDS: Meropenem 500 MG in NA CHLORIDE 0.9% 100 ML IV SCH ×3 (00:17→16:48)
[2019-08-20] MEDS: LEVOTHYROXINE SOD 0.025 MG TAB PO SCH (06:00)
[2019-08-20] MEDS: HOME MED 1 EA UNK PO SCH ×6 (06:00→09:00)
[2019-08-20] MEDS: hydroCHLOROthiazide 12.5 MG CAP PO SCH (09:00)
[2019-08-20] MEDS: DULOXETINE 30 MG CAP PO SCH (09:00)
[2019-08-20] MEDS: LOSARTAN POTASSIUM 50 MG TABLET PO SCH (09:00)
[2019-08-20] MEDS: BUPROPION HCL XL 150 MG TAB PO SCH (09:00)
[2019-08-20] MEDS: METOPROLOL XL 50 MG TAB PO SCH (09:00)
[2019-08-20] MEDS: MORPHINE 2 MG/ML SYR IV PRN ×2 (15:08→20:44)
[2019-08-20] MEDS: ENOXAPARIN 40 MG/0.4 ML SQ SCH (16:48)
--- NOTE | 2019-08-20 17:32 | PN ---
Date of Progress Note: 08/19/2019 Subjective: The patient currently lying in bed. She looks comfortable. Upon my arrival, she stated that she continued to have abdominal cramps diffusely in her abdomen. She is very angry with Dr. Fawad green and she said she may consider suing him and she told me to get out of it. She does not want to work with her anymore and she told me that she has nothing to do with the surgery and infection. Th e charge nurse with me. The patient was very emotional, she cried. She said that the surgery messed it up and she advised that she does not want to leave the hospital until her infection cleared. She denies any fever, chills, night sweats, dizziness, lightheadedness, headache, blurred vision. Sh e again have diffuse abdomen. She denies any diarrhea or constipation. No dysuria. Objective: Vital Signs: Blood pressure was 154/88, respiratory rate 18, pulse 77, temperature 97.3. General: The patient is alert and oriented x3. Does not look in any distress. HEENT: Atraumatic, normocephalic. PERRLA. Oral mucosa is moist. Neck: Supple. No JVD. No bruits. Chest: Clear to auscultation. Good air entry. Heart: Regular rate and rhythm. S1, S2 normal. No gallop or murmur. Abdomen: Soft, nontender. No masses. No hepatosplenomegaly. Positive bowel sounds. Extremities: No clubbing, cyanosis, or edema. No calf tenderness. Neurologic: Grossly intact. Laboratory Data: Showed CBC with white blood cells 12.12, hemoglobin 9.5, platelets 357. Chemistry w ith sodium 133, normal potassium, normal creatinine, calcium 8.2. Bilirubin of 1.2, alkaline phospha tase of 479. Assessment And Plan: 1.Extended spectrum beta-lactamase urinary tract infection. We will continue patient on IV antibiot ic with meropenem. The patient does not want to leave the hospital until her antibiotic course is fi nished. So, we will consult ID to discuss the course of antibiotics and if there is any other option , we will get Dr. Briones to see patient on Wednesday. 2.Hypokalemia, resolved. 3. appendicitis history, status post appendectomy done by Dr. Maier on August 09 lapar oscopically. The patient is very angry about upon surgery and she is very angry with Dr. Maier and she was very emotional, she cried. She thinks the surgery messed it up. She stated that she would take actions when she is feeling better. Her last CT of the abdomen done on the showed high den sity fluid in the lower pelvis and cul-de-sac no abscess or drainable fluid collection at this time. She had fat stranding along the margin of the gallbladder noted. Dr. Maier has no plan for surgical intervention again apparently. 4.History of anxiety and depression as well as post-traumatic stress disorder. The patient is curren tly on Wellbutrin, Cymbalta as well as Seroquel. 5.Hypothyroidism. Patient is on Synthroid. 6.Hypertension. Continue losartan. 7.The patient to be on heparin. JOI/NAOMIE Voice ID: [id number] Report ID: [id number]
--- NOTE | 2019-08-20 17:35 | PN ---
Date of Progress Note: 08/20/2019 Subjective: Currently, patient is lying in bed. She looks very comfortable. She is much more pleasant today. She had no chest pain. She continued to have mild abdominal pain, but she thinks it is much better than yesterday. Review of Systems: Otherwise negative. Objective: Vital Signs: Blood pressure is 105/68, respiratory rate 18, pulse _ , saturating 97% on room air. General: She is alert and oriented x3. Does not look in any distress. HEENT: Atraumatic, normocephalic. PERRLA. Oral mucosa is moist. Neck: Supple. No JVD. No bruits. Chest: Clear to auscultation. Good air entry. Heart: Regular rate and rhythm. S1, S2 normal. No gallop. Abdomen: Soft. Minimal tenderness to palpation. There is no guarding or rebound. Positive bowel sounds. Extremities: No clubbing, cyanosis, or edema. Neurologic: Grossly intact. Laboratory Data: Labs today none. Pending tomorrow morning. Assessment And Plan: 1. Extended spectrum beta-lactamases urinary tract infection. Patient is currently on meropenem. ID consult pending tomorrow to decide term of antibiotics and if there is an oral option. 2. History of appendicitis, status post appendectomy on August 09. Patient is very angry with the outcome of this surgery and s he refusing he care of Dr. Maier. She stated that she thinks surgery messed her up. She continued to complain about the surgery outcome. 3. Hypertension, well controlled on metoprolol as well as hydrochlorothiazide , and losartan. 4. Coronary artery disease with history of depression or anxiety. She is on Seroquel and Wellbutrin as well as Cymbalta. 5. Deep vein thrombosis prophylaxis. I just order lovenox today patient at risk for deep venous thrombosis or pulmonary embolism. Given her prolonged hospitalization, will check with Dr. Maier before proceeding to make sure there is no risk of bleeding. 6. Patient needs a social work consult with lot of issues regarding to discharge as the patient refused to leave the hospital until she feels good. JOI/NAOMIE Voice ID: [id number] Report ID: [id number] JARED
[2019-08-21] MEDS: Meropenem 500 MG in NA CHLORIDE 0.9% 100 ML IV SCH ×3 (00:29→17:11)
[2019-08-21] MEDS: MORPHINE 2 MG/ML SYR IV PRN ×4 (00:29→13:37)
[2019-08-21 04:52] LABS: Basophils % 0.2 % (0-1.3); Hematocrit 27.1 % (36.0-45.0); MPV 7.3 fL (7.6-11.3); RBC Red Blood Cell Count 3.01 M/uL (3.86-4.86)
[2019-08-21 05:03] LABS: ALT/SGPT 11 U/L (12-78); AST/SGOT 17 U/L (15-37); Alkaline Phosphatase 146 U/L (45-117); BUN Blood Urea Nitrogen 7 mg/dL (7-18); Bicarbonate 33 mmol/L (21-32); Bilirubin Total 0.8 mg/dL (0.2-1.0); Glucose Level 116 mg/dL (74-106); Potassium 3.6 mmol/L (3.5-5.1); Protein, Total 5.6 g/dL (6.4-8.2); Sodium Level 134 mmol/L (136-145)
[2019-08-21] MEDS: LEVOTHYROXINE SOD 0.025 MG TAB PO SCH (06:00)
[2019-08-21] MEDS: HOME MED 1 EA UNK PO SCH ×6 (06:00→09:00)
[2019-08-21] MEDS: METOPROLOL XL 50 MG TAB PO SCH (09:00)
[2019-08-21] MEDS: LOSARTAN POTASSIUM 50 MG TABLET PO SCH (09:00)
[2019-08-21] MEDS ORDERED: POTASSIUM CL SA 10 MEQ TAB PO ONE (09:00)
[2019-08-21] MEDS: hydroCHLOROthiazide 12.5 MG CAP PO SCH (09:00)
[2019-08-21] MEDS: BUPROPION HCL XL 150 MG TAB PO SCH (09:00)
[2019-08-21] MEDS: DULOXETINE 30 MG CAP PO SCH (09:00)
[2019-08-21 12:22] LABS: Urine Appearance CLEAR; Urine Bilirubin NEGATIVE (NEG); Urine Blood NEGATIVE (NEG); Urine Color YELLOW; Urine Glucose NEGATIVE (NEG); Urine Protein NEGATIVE (NEG); Urine pH 6.5 (5.0-7.0)
[2019-08-21 12:24] LABS: Urine Microscopic Reflex NO UMIC
[2019-08-21 12:42] LABS: Barbiturates NEGATIVE (NEGATIVE); Benzodiazepines NEGATIVE (NEGATIVE); Cocaine NEGATIVE (NEGATIVE); METHAMPHETAM NEGATIVE (NEGATIVE); Methadone NEGATIVE (NEGATIVE); Opiates POSITIVE (NEGATIVE); Phencyclidine NEGATIVE (NEGATIVE); THC Cannibis POSITIVE (NEGATIVE)
--- NOTE | 2019-08-21 15:43 | CON ---
History Of Present Illness: This is a 64-year-old female, I was consulted for urinary tract infectio n secondary to ESBL E coli. Patient recently had laparoscopic emergency appendectomy. Patient is re admitted to the hospital and being treated for urinary tract infection with meropenem, complains of s ubjective fevers and abdominal discomfort. Past Medical History: Patient has significant past medical history of hypothyroidism, hypertension, and multiple surgical interventions with rods in her lower extremity and the back as she is not speci fic about her surgeries. Denies any other problems at this time. Social History: Nonsmoker, nondrinker. Family History: Noncontributory. Medications: Meropenem, hydrochlorothiazide, levothyroxine, metoprolol. See MAR for other medicatio ns. Allergies: CODEINE AND ACETAMINOPHEN. Review of Systems: Ten-point review was performed. Physical Examination: General: This is a 64-year-old female, lying in bed, not in any acute cardiopulmonary distress. Vital Signs: Temperature 97.7, pulse 76, respirations 18, blood pressure 139/84. Abdomen: Shows obese, soft, and bowel sounds present. No CVA tenderness. No guarding or rigidity. Extremities: No edema. HEENT: Unremarkable. Neck: Supple. Laboratory Data: Shows WBC 11.6, hemoglobin 9.3, platelets are 402. Chemistry shows sodium 134, pot assium 3.6, chloride 97, bicarb 33, BUN 7, creatinine 0.54, glucose 116. Albumin level is 2. Urinal ysis done on 08/15, shows 10 to 20 wbc's. Assessment And Plan: This is a 64-year-old female with recent emergent appendectomy for appendicitis , now being treated for urinary tract infection with extended-spectrum beta-lactamase with low WBC co unt in the urine. We will repeat urinalysis and cultures as patient has been on meropenem since 07/29 1. We will recommend 7 days total course of antibiotic. Protein-calorie malnourishment. Followup C T scan if leukocytosis does not resolve. We will follow the patient closely. Thank you for consult. NF/MODL Voice ID: [id number] Report ID: [id number]
[2019-08-21] MEDS: ENOXAPARIN 40 MG/0.4 ML SQ SCH (17:10)
[2019-08-21] MEDS: OXYCODONE HCL 5 MG TAB PO PRN (17:46)
--- NOTE | 2019-08-21 21:00 | PN ---
Date of Progress Note: 08/21/2019 Subjective: Patient is seen and examined, chart reviewed, and case discussed with RN, Dr. Maier, as well as Dr. Hernandez. Charge nurse, house player and mattress spring encaser at the bedside with me. Patient is still complaining of some pain, has been switched over to 10 mg of morphine every 4 hours from every 2 hours. Case was also discussed with mattress spring encaser and social media project manager. Patient is somewhat reluctant to provide details including information regarding where her residence is in order to help set up IV antibiotics. PICC line has already been placed. Patient also complaining of some diarrhea, but apparently had been taking Colace on her own without informing staff. Patient also refused to see a psychiatrist. She has had multiple episodes of agitation, seems to be depressed as well, has been tearful and with her psychiatric history, was recommended to see Psychiatry, however, declined. Patient also displaying drug- seeking behavior. States only oral medication she can take is OxyContin extended release. Allergies: SHE IS ALLERGIC TO CODEINE AND TYLENOL. Medications: List reviewed. Physical Examination: Vital Signs: Temperature 97.7, heart rate 76, blood pressure 139/84, respirations 18, O2 96% on room air. General: Awake, alert, oriented x3. Does not appear to be in any acute distress, obese female. CV: S1, S2. Regular rate and rhythm. Peripheral pulses present. Respiratory: Moving air well bilaterally. No wheezing or stridor. No use of accessory muscles. Gastrointestinal: Abdomen is soft. Tenderness to palpation on the epigastrium. No rebound or guarding. Positive bowel sounds. Extremities: No clubbing, cyanosis. Patient has pedal edema. Neuro: Cranial nerves 2 through 12 intact grossly. No focal neurological deficits. Speech is normal. Laboratory Data: Sodium is 134, potassium 3.6, chloride 97, CO2 of 33, BUN 7, creatinine 0.54, glucose 116, calcium 8, total bilirubin 0.8, AST 17, ALT 11, alkaline phosphatase 146, albumin 2. WBC 11.6, H and H are 9.3 and 27.1, platelets 402, neutrophils 79%. Repeat UA is negative nitrite, negative leukocyte esterase. UDS positive for marijuana and opiates. Urine culture positive for ESBL E coli. Occult blood from stool was negative. Assessment And Plan: A 64-year-old female with: 1. Extended-spectrum beta lactamases Escherichia coli urinary tract infection , currently on meropenem. Repeat UA is clear. ID recommends a total of 7 days of IV antibiotics. 2. History of appendicitis, status post appendectomy on August [address] abdomen showed stranding and suspected blood within the peritoneal fluid. No extravasation of contrast material. Patient continues to have pain. We will continue to wean off IV pain medications and switch to p.o. However, patient now states she can only take OxyContin. We will see if she is able to tolerate tramadol. She has allergy to codeine. May need to repeat CT scan if not improving. 3. Essential hypertension, on metoprolol, hydrochlorothiazide, and losartan. We will continue to monitor. 4. Coronary artery disease with [place] artery and [place] heart without angina. 5. History of depression and anxiety. Patient takes Seroquel, Wellbutrin, and Cymbalta. 6. Apparent history of posttraumatic stress disorder as well. 7. Deep vein thrombosis prophylaxis. Patient is on Lovenox. 8. Marijuana abuse. 9. Anemia. Patient has been transfused 2 units of PRBCs. We will continue to monitor H and H. Hemoccult was negative. Plan: 1. Continue with IV antibiotics. Need to set up IV antibiotics long-term for ESBL E coli. We will wean off IV pain medications. UDS is positive for marijuana. We will delinquency counselor. We will continue to monitor electrolytes and WBC. /NAOMIE Voice ID: [id number] Report ID: [id number] JARED
[2019-08-22] MEDS: OXYCODONE HCL 5 MG TAB PO PRN ×5 (00:16→22:39)
[2019-08-22] MEDS: Meropenem 500 MG in NA CHLORIDE 0.9% 100 ML IV SCH ×3 (00:16→16:00)
[2019-08-22] MEDS: LEVOTHYROXINE SOD 0.025 MG TAB PO SCH (06:00)
[2019-08-22] MEDS: HOME MED 1 EA UNK PO SCH ×6 (06:00→08:06)
[2019-08-22] MEDS ORDERED: HYDRALAZINE HCL 20 MG/ML VIAL IV PRN (06:14)
[2019-08-22] MEDS ORDERED: POTASSIUM CL SA 10 MEQ TAB PO ONE (06:36)
[2019-08-22 06:44] LABS: BUN Blood Urea Nitrogen 7 mg/dL (7-18); Bicarbonate 34 mmol/L (21-32); Glucose Level 93 mg/dL (74-106); Potassium 3.7 mmol/L (3.5-5.1); Sodium Level 135 mmol/L (136-145)
[2019-08-22] MEDS: BUPROPION HCL XL 150 MG TAB PO SCH (07:57)
[2019-08-22] MEDS: DULOXETINE 30 MG CAP PO SCH ×2 (07:57→08:08)
[2019-08-22] MEDS: LOSARTAN POTASSIUM 50 MG TABLET PO SCH (08:04)
[2019-08-22] MEDS: hydroCHLOROthiazide 12.5 MG CAP PO SCH (08:07)
[2019-08-22] MEDS: METOPROLOL XL 50 MG TAB PO SCH (08:07)
[2019-08-22 08:15] VITALS: O2SAT 97
--- NOTE | 2019-08-22 12:50 | RAD REPORT ---
EXAM DESCRIPTION: CTAbdomen Pelvis W Contrast - 08/22/2019 12:33 pm CLINICAL HISTORY: Abdominal pain. abdomen pain COMPARISON: Abdomen Pelvis W Contrast dated 08/13/2019; Abdomen Pelvis W Contrast dated 08/09/20 19 TECHNIQUE: Biphasic CT imaging of the abdomen and pelvis was performed with 100 ml non-ionic IV cont rast. All CT scans are performed using dose optimization technique as appropriate and may include automated exposure control or mA/KV adjustment according to patient size. FINDINGS: Linear subsegmental atelectasis is present in the left lung base.Trace left pleural fluid. The liver, spleen, pancreas, adrenal glands are normal. Mild bilateral hydronephrosis is seen. Multiloculated large pelvic abscess is present with a component anterior to the uterus measuring 15 x 7 cm with a deeper posterior component between uterus and rectum measuring 8.3 x 5.5 cm. Appendectom y changes. 3.6 cm fat containing left ovarian dermoid. Mild free fluid is seen in the left adnexal r egion. No suspicious bony findings. 4.8 cm fatty mass is seen anterior to the proximal left femur, likely a lipoma. IMPRESSION: Large pelvic abscess as detailed above.
[2019-08-22] MEDS ORDERED: METRONIDAZOLE 500mg IVPB 500 MG/100 ML BAG IV SCH (16:00)
--- NOTE | 2019-08-22 18:17 | PN ---
Date of Progress Note: 08/22/2019 Subjective: Patient seen and examined. Charge nurse, embedded case manager with me at bedside. Chart reviewed and case discussed with RN and Dr. Hernandez. Patient is still complaining of some pain. CT scan this afternoon. Tolerating oxycodone well, asking for it to be switched to every 4 hours. Medications: Reviewed. Physical Examination: Vital Signs: Temperature 97.4, heart rate 80, blood pressure 139/83, respirations 18, O2 96% on room air. General: Awake, alert, oriented x3. Obese female, ill-appearing. CV: S1, S2. Regular rate and rhythm. Peripheral pulses present. Respiratory: Moving air well bilaterally. No wheezing or stridor. Gastrointestinal: Abdomen is soft. Mild tenderness to palpation. No rebound or guarding. Positive bowel sounds. Extremities: No clubbing, cyanosis. Patient has pedal edema. Neurologic: Nonfocal. Laboratory Data: Sodium 135, potassium 3.7, chloride 97, CO2 of 34, BUN 7, creatinine 0.56, glucose 93, calcium 8. WBC 11.6, H and H 9.3, 27.1, platelets 402, neutrophils 79%. Urine culture growing out ESBL E coli. CT scan of the abdomen and pelvis personally reviewed, shows a large pelvic abscess as detailed above. 4.8 cm fatty mass seen in the anterior proximal left femur, likely a lipoma, multiloculated large pelvic abscess is present with a component anterior to the uterus measuring 15 x 7 cm with deeper posterior component between the uterus and rectum measuring 8.3 x 5.5 cm, appendectomy changes 3.6 cm, fat containing left ovarian dermoid, mild free fluid seen in the left adnexal region. Assessment: A 64-year-old female with: 1. Extended-spectrum beta-lactamase Escherichia coli urinary tract infection without hematuria. We will continue with IV meropenem. Infectious Disease recommends 1 week of IV meropenem. Repeat UA is clear. 2. History of appendicitis, status post appendectomy August 09. CT scan repeated today, shows pelvic abscess, present the component of the anterior to the uterus measuring 15 x 7 cm with deeper posterior component between uterus and rectum measuring 8.3 x 5.5 cm. Patient also has incidental finding of 3.6 cm fat containing left ovarian dermoid and 4.8 cm fatty mass anterior to the proximal left femur, likely a lipoma. We will need drainage for the abscess. We will reach out to surgeon Dr. Maier. May also need a Mannequin Mounter due to proximity in the uterus. 3. Essential hypertension. We will continue medications. 4. Coronary artery disease. [place] artery and [place] heart without angina. 5. History of depression and anxiety, on Seroquel, Wellbutrin, and Cymbalta. Patient has been emotionally labile, tearful at times as well. Declined psychiatric evaluation. 6. Apparent history of posttraumatic stress disorder. 7. Marijuana abuse. UDS was positive. 8. Anemia likely blood loss anemia. Patient has been transfused 2 units of PRBCs. We will check anemia panel. Monitor H and H. Plan: Continue with broad-spectrum IV antibiotics. Will discuss with surgical team for need for further intervention for abscess in the pelvis. ADDENDUM: Spoke with surgeon Dr. Maier. He recommends IR for minimally invasive drainage. ADDENDUM: Spoke with radiologist Dr. Viramontes - posterior abscess is not amenable for drainage. Patient updated. Surgeon and IR recommend transfer to higher level of care. Patient agrees to transfer. She was accepted by hospitalist at [facility]. /NAOMIE Voice ID: [id number] Report ID: [id number] JARED
--- NOTE | 2019-08-22 20:57 | PN ---
Subjective: Patient is lying in bed. No new acute event. Chart reviewed. Objective: Vital Signs: Temperature 98, pulse 83, respirations 18, blood pressure 152/86. Lungs: Basal crackles. Heart: S1, S2. Regular. Abdomen: Soft. Bowel sounds present. Tenderness in the lower abdominal area. Extremities: No edema. Laboratory Data: No labs available for today. Assessment And Plan: CT scan shows large lower abdominopelvic abscess, which was discussed with hima ent, possible interventional radiologist versus surgical team to evacuate the wound. We will also ad d Flagyl to the treatment. Repeat CBC, CMP. Continue current treatment. We will follow the patient closely. The patient is on broad-spectrum antibiotic. Discontinue isolation. Urine analysis is ne gative for any bacterial growth. NF/MODL Voice ID: [id number] Report ID: [id number]
[2019-08-22 22:02] VITALS: TEMP 97.1
[2019-08-22 22:39] VITALS: BP 161/81
--- NOTE | 2019-08-23 18:30 | DS ---
Date of Discharge: 08/23/[address] Maier's service. Consultants: Dr. Maier, Dr. Hernandez with Infectious Disease. Admitting Diagnoses: 1. Postoperative bleed at surgical site following appendectomy. 2. Extended spectrum beta-lactamase Escherichia coli. Discharge Diagnoses: 1. Extended spectrum beta-lactamase Escherichia coli urinary tract infection without hematuria. 2. Recent appendicitis, status post appendectomy with subsequent bleeding at surgical site. 3. Pelvic abscess. 4. Essential hypertension. 5. Coronary artery disease, [place] artery and [place] heart without angina. 6. History of major depressive disorder, on SSRI. 7. Generalized anxiety disorder. 8. Post-traumatic stress disorder. 9. Marijuana abuse. 10. Anemia, likely due to acute blood loss anemia from surgical site bleed. Hospital Course: As mentioned earlier, patient was admitted to Dr. Maier's service, came in due to abdominal pain and black tarry stools postoperatively from appendectomy, which was done on the August 09. Patient had a drop in her hemoglobin, was transfused 2 units of PRBCs. Her hemoglobin stabilized afterwards. Patient continued to have significant amount of pain. She was on IV pain medications, also had some electrolyte abnormalities, which were corrected. Patient did not wish to be seen by the surgeon, refused to be examined by him, and therefore Dr. Maier transfered the service to hospitalist group. Patient was agitated significantly. Patient did have very emotional outbursts. Patient was also started on meropenem for her ESBL infection in the urine. Infectious Disease was consulted and recommended continuing IV antibiotics for 7 days total. Patient's repeat UA appeared clear. Patient due to continued abdominal pain, CT scan was repeated, at that time showed pelvic abscess with multiloculated components. The anterior component was 15 x 7 cm with a deeper posterior component between uterus and rectum measuring 8 x 5 cm and incidental finding of 3.6 cm fat containing left ovarian dermoid and 4.8 cm fatty mass anterior to the proximal left femur, likely lipoma. Patient required drainage for this abscess. However, the patient did not wish to see the surgeon, Dr. Maier. Recommendations were made for minimally invasive drainage with Interventional Radiology, however, speaking with radiologist, Dr. Michel, Dr. Viramontes, unable to be done at this facility. Therefore, patient was informed and she agreed to transfer [facility] of care for Interventional Radiology drainage of the abscesses in the pelvis. This was likely resultant of infected blood from the surgical site, which is a known common complication. Patient was slowly weaned off her pain medications. IV pain medications were discontinued. She did claim allergies to codeine and acetaminophen. However, she stated that she was able to tolerate OxyContin extended release in the past. Therefore, oxycodone was started and the patient tolerated the medication well without any reactions. It should be noted also, the patient was taking medications on her own in the hospital, those were locked up with Pharmacy including her [place], which were completely full. No medications had been taken from that pill bottle. Patient was taking her own laxatives. Patient was counseled regarding taking medications without knowledge of staff and physicians. Patient's IV antibiotics were also adjusted due to the new pelvic abscess. Patient's white blood cell count improved to 11.6. She does not appear to be septic. Patient was then accepted to [facility] and was discharged in a stable condition. It should be noted also that the patient refused inpatient psychiatry consultation. Also I am going to recommend patient to follow up with Psychiatry as an outpatient and to be further assessed prior to discharge. Patient was then transferred to [facility]. Total time spent transferring the patient was 45 minutes. For physical exam findings please see progress note dictated on the day of discharge. VIRAJ Voice ID: [id number] Report ID: [id number] JARED
== END 2019-08-23 00:15 | disposition short-term general hospital (02) | DRG 949 ==
LOC: ER 10:50 → ERHOLD 13:40 → 4TH 14:47 → OBSVTOIN 08-15 13:47
PROVIDERS: ADMIT Internal Medicine; ATTEND Family Medicine
PROC: 30233N1 Transfusion of Nonautologous Red Blood Cells into Peripheral Vein, Percutaneous Approach (ICD-10-PCS; principal; 2019-08-18)
DX: T81.30XD Disruption of wound, unspecified, subsequent encounter (principal); N39.0 Urinary tract infection, site not specified; Z16.12 Extended spectrum beta lactamase (ESBL) resistance; D62 Acute posthemorrhagic anemia; N73.0 Acute parametritis and pelvic cellulitis; E46 Unspecified protein-calorie malnutrition; T81.43XA Infection following a procedure, organ and space surgical site, initial encounter; B96.20 Unspecified Escherichia coli [E. coli] as the cause of diseases classified elsewhere; E87.6 Hypokalemia; F41.1 Generalized anxiety disorder; F32.9 Major depressive disorder, single episode, unspecified; I10 Essential (primary) hypertension; E03.9 Hypothyroidism, unspecified; F43.10 Post-traumatic stress disorder, unspecified; F12.10 Cannabis abuse, uncomplicated; Z68.35 Body mass index [BMI] 35.0-35.9, adult; Z90.49 Acquired absence of other specified parts of digestive tract
CPT/HCPCS: 36415; 36430; 71045; 74177; 80048; 80053; 80076; 80307; 81003; 81015; 82272; 83690; 84132; 85014; 85018; 85025; 86850; 86900; 86901; 87077; 87086; 87088; 87186; 96374; 96375; 99285; G0378; J1170; J1650; J2270; J2405; J2550; J7030; P9016; Q9967